=== PATIENT | male | born 1955 ===

== ENCOUNTER → 2021-01-10 13:58 | Outpatient (BNVA) | payer BC, MEDICARE, SELFPAY | PROVIDERS: PCP Family Medicine; Visit Provider Urology ==

== ENCOUNTER 2021-01-19 10:27 | Outpatient (REF) | payer MEDICARE, BC, SELFPAY ==
--- NOTE | ~2021-01-19 | US_ITS ---
EXAMINATION: US RETROPERITONEAL LIMITED (RENAL ONLY) CLINICAL INFORMATION: Calculus of kidney. COMPARISON: None TECHNIQUE: Real-time imaging of the kidneys. FINDINGS: RIGHT KIDNEY: 11.9 x 6.5 x 5.8 cm (SAG x AP x TRV). The kidney is normal in size, contour, and echogenicity. Renal cortical thickness is normal. No calculi or focal parenchymal lesions. No hydronephrosis. LEFT KIDNEY: 11.4 x 6.1 x 5.0 cm (SAG x AP x TRV). The kidney is normal in size, contour, and echogenicity. Renal cortical thickness is normal. No calculi or focal parenchymal lesions. No hydronephrosis. US/US renal BI IMPRESSION: Normal renal ultrasound.
== END 2021-01-19 10:28 | disposition home or self-care (01) ==
LOC: HO.HMGCX 10:27
PROVIDERS: PCP Family Medicine; Visit Provider Urology
DX: N20.0 Calculus of kidney (principal)
CPT/HCPCS: 76775

== ENCOUNTER 2021-12-27 08:54 | Outpatient (REF) | payer MEDICARE, BC, SELFPAY ==
--- NOTE | ~2021-12-27 | XR_ITS ---
EXAMINATION: XR ABDOMEN KUB CLINICAL INDICATION: N20.0 - Calculus of kidney COMPARISON: Renal ultrasound 01/19/2021. TECHNIQUE: AP x2 views of the abdomen. FINDINGS: No visible renal or abdominal ureteral calculi. Probable calcified phleboliths pelvis. Bowel gas normal. No gaseous dilatation of bowel or abnormal collections of gas. Lung bases clear. Multilevel degenerative disc changes lower thoracic and lumbar spine. XR/XR KUB IMPRESSION: -No visible renal or abdominal ureteral calculi. Probable calcified phlebolith pelvis. -Bowel gas unremarkable. Lung bases clear.
== END 2021-12-27 08:55 | disposition home or self-care (01) ==
LOC: HO.XRAY 08:54
PROVIDERS: PCP Family Medicine; Visit Provider Urology
DX: N20.0 Calculus of kidney (principal)
CPT/HCPCS: 74018

== ENCOUNTER → 2022-01-10 09:45 | Outpatient (BNVA) | payer MEDICARE, BC, SELFPAY | PROVIDERS: PCP Family Medicine; Visit Provider Urology | DX: N52.9 Male erectile dysfunction, unspecified (principal); N20.0 Calculus of kidney | CPT/HCPCS: Q3014 ==

== ENCOUNTER → 2023-01-06 10:25 | Outpatient (BNVA) | payer MEDICARE, BC, SELFPAY | PROVIDERS: Visit Provider Nurse Practitioner Family | DX: N20.0 Calculus of kidney (principal); E11.69 Type 2 diabetes mellitus with other specified complication; N52.1 Erectile dysfunction due to diseases classified elsewhere | CPT/HCPCS: 99212 ==

== ENCOUNTER 2023-03-04 05:01 | Outpatient (REF) | payer MEDICARE, BC, SELFPAY ==
--- NOTE | ~2023-03-04 | XR_ITS ---
EXAMINATION: XR KNEE, LEFT CLINICAL INFORMATION: Pain COMPARISON: None available. TECHNIQUE: 3 views of the left knee. FINDINGS: Bone alignment is normal. No fracture or dislocation. Arthritis at the patellofemoral joint with small osteophytes. Osteophytes at the quadriceps tendon insertion and patellar tendon origin and insertion. Small joint effusion. XR/XR knee LT 3V IMPRESSION: Degenerative changes.
== END 2023-03-04 05:02 | disposition home or self-care (01) ==
LOC: HO.HOSX 05:01
PROVIDERS: Visit Provider Orthopaedic Surgery
DX: S83.242A Other tear of medial meniscus, current injury, left knee, initial encounter (principal); M25.562 Pain in left knee; X58.XXXA Exposure to other specified factors, initial encounter; Y93.9 Activity, unspecified; Y92.9 Unspecified place or not applicable; Y99.9 Unspecified external cause status; Z79.899 Other long term (current) drug therapy
CPT/HCPCS: 20610; 73562; J3301

== ENCOUNTER 2023-03-04 09:16 | Outpatient (AMB) | payer MEDICARE, BC, SELFPAY ==
--- NOTE | 2023-03-04 09:29 | MHC.OFFVIS ---
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 Previous patient of Dr. Reyes. Patient reports ongoing pain for a year and getting worse. He describes his pain as sharp in nature. Most of the pain is along the medial and lateral aspects of his left knee. He states that his left knee will give out several times per day. He has tried wearing a knee brace which gives him minimal relief. He has also tried Tylenol anti-inflammatory medicines which gave him mild relief. He has had injections past which gave him temporary relief. Allergies penicillin V Allergy (Unknown, Verified 03/04/23 09:34) Unknown Medication List - Last Reconciled 03/04/23 by Az Reyes MD atorvastatin 10 mg PO DAILY empagliflozin (Jardiance) 25 mg PO DAILY fluoride (sodium) 1.1% PO ketoconazole 2% 1 appl topical DAILY montelukast 10 mg PO DAILY omeprazole 20 mg PO DAILY semaglutide (Ozempic) 0.5 mg subcut QWEEK [facility] Medical History (Updated 03/04/23 @ 12:22 by Az Reyes MD) Diabetes mellitus, type II Ejaculatory disorder Surgical History History of surgery Physical Exam Vital Signs: BMI result Body Mass Index 25.8 Const Other: Well-nourished well-developed very friendly male awake alert and oriented x3 in no acute distress Extrem Other: Bilateral lower extremity examination shows good capillary refill, no skin lesions noted, normal sensation light touch Left knee examination shows a minimal effusion, tenderness along his medial and lateral joint lines, positive [facility] Procedures Joint Injection/Drain Joint Injection/Drain Primary Site: left knee Prep: site was prepped using aseptic technique Injected: 40 mg of, Kenalog and 1% plain lidocaine Procedure: The patient tolerated the procedure well Coding 47300 - Large joint Procedure code (CPT) selection complete Results Reviewed Results Reviewed: 03/04/23 09:39 Lidocaine HCl 2 % MPF [Xylocaine 2 % MPF] 5 ml .ROUTE .ST-MED ONE Triamcinolone Acetonide [Kenalog-40] 40 mg .ROUTE .STK-MED ONE X-rays of the patient's bilateral knee show mild diffuse joint space narrowing, no acute bony abnormalities MRI of the patient's left knee shows mild diffuse degenerative changes as well as tearing of his medial and lateral menisci, no acute bony abnormalities Assessment & Plan Assessment & Plan (1) Tear of medial meniscus of left knee: Code(s): S83.242A - Other tear of medial meniscus, current injury, left knee, initial encounter Plan Mr. Walls presents with left knee pain and mechanical symptoms due to tearing of his medial and lateral menisci. I had a lengthy discussion with the patient regarding the treatment options. The risks and benefits of a no other cortisone injection were discussed at length with the patient. The patient wished to proceed. He tolerated the injection well. If he does not get lasting relief from the cortisone injection therapy he is considering undergoing left knee arthroscopic surgery later this year. He will contact my office to pick a surgery date when he is ready to do so. The surgery will most likely involve left knee diagnostic arthroscopy with partial medial and lateral meniscectomies. He will follow-up as instructed. Feel free to call me at any time should questions regarding his orthopedic management arise. Thank you very much for asking me to see this very friendly gentleman. I spent 22 minutes in reviewing the patient's records and imaging studies, seeing the patient and documenting in the medical record. Orders: Orders XR knee LT 3V Today M25.562 - Pain in left knee AMB Joint Injection/Aspiration Today S83.242A - Other tear of medial meniscus, current injury, left knee, initial encounter Coding Level of Care Code Est Pt Level 2 (72360) Diagnoses Tear of medial meniscus of left knee S83.242A CPT Codes Coding - Large joint: 91647 - Large joint ([id number])
[2023-03-04 09:37] VITALS: BMI 25.8
== END 2023-03-04 10:10 | disposition home or self-care (01) ==
PROVIDERS: PCP Family Medicine; Visit Provider Orthopaedic Surgery
DX: S83.232A Complex tear of medial meniscus, current injury, left knee, initial encounter (principal); S83.272A Complex tear of lateral meniscus, current injury, left knee, initial encounter; M17.12 Unilateral primary osteoarthritis, left knee
CPT/HCPCS: 20610; 99204

== ENCOUNTER 2023-04-24 09:26 | Outpatient (AMB) | payer MEDICARE, BC, SELFPAY ==
--- NOTE | 2023-04-24 09:27 | A.OFFVIS_ITS ---
Intake Intake Visit Reasons: PreOp - Lt Knee Arthroscopy 05/09 DR Ramos Note: Dain is a 68 year old male who presents today for a evaluation for his left knee pain. Previous patient of Dr. Reyes. Patient reports ongoing pain for a year and getting worse. He describes his pain as sharp in nature. Most of the pain is along the medial and lateral aspects of his left knee. He states that his left knee will give out several times per day. He has tried wearing a knee brace which gives him minimal relief. He has also tried Tylenol anti- inflammatory medicines which gave him mild relief. He has had injections past which gave him temporary relief. Allergies penicillin V Allergy (Unknown, Verified 04/24/23 09:34) Unknown Medication List - Last Reconciled 04/24/23 by Hailee Smith RN atorvastatin 10 mg PO DAILY empagliflozin (Jardiance) 25 mg PO DAILY fluoride (sodium) 1.1% PO ketoconazole 2% 1 appl topical DAILY montelukast 10 mg PO DAILY omeprazole 20 mg PO DAILY semaglutide (Ozempic) 0.5 mg subcut QWEEK [facility] Medical History (Updated 03/04/23 @ 12:22 by Az Reyes MD) Diabetes mellitus, type II Ejaculatory disorder Surgical History History of surgery Physical Exam Const Other: Well-nourished well-developed very friendly male awake alert and oriented x3 in no acute distress Lungs - clear to auscultation bilaterally with symmetric expansion Cardiovascular exam - regular rate and rhythm Abdominal exam - soft nontender nondistended Extrem Other: Bilateral lower extremity examination shows good capillary refill, no skin lesions noted, normal sensation light touch Left knee examination shows a minimal effusion, minimal crepitus with range of motion, tenderness along his medial and lateral joint lines, positive Odalys's test, no instability Results Reviewed Results Reviewed: X-rays of the patient's left knee show mild diffuse joint space narrowing, no acute bony abnormalities MRI of the patient's left knee shows mild diffuse degenerative changes as well as tearing of his medial and lateral menisci Assessment & Plan Assessment & Plan (1) Tear of medial meniscus of left knee: Code(s): S83.242A - Other tear of medial meniscus, current injury, left knee, initial encounter Plan: Mr. Walls presents with progressively worsening left knee pain and mechanical symptoms due to early degenerative joint disease as well as tearing of his medial and lateral menisci and plica syndrome. I had a lengthy discussion with the patient regarding the treatment options. At this point he has failed continued non operative treatments. The risks and benefits of left knee arthroscopic surgery were discussed at length with the patient. The patient wishes to proceed with surgery. Surgery will most likely involve left knee diagnostic arthroscopy with partial medial and lateral meniscectomies. He does understand that he may not get 100% relief of his symptoms depending on the severity of his degenerative changes. I did give the patient a prescription for Percocet for his postoperative pain. The patient will follow-up as instructed. Feel free to call me at any time should questions regarding his orthopedic management arise. I spent 22 minutes in reviewing the patient's records and imaging studies, seeing the patient and documenting in the medical record. Medications: New oxycodone-acetaminophen 5-325 mg (Percocet) Partial Fill upon patient request. 1 tab PO Q6H PRN 20 tabs 0RF pain Coding Level of Care Code Est Pt Level 2 (26436) Diagnoses Tear of medial meniscus of left knee S83.242A
== END 2023-04-24 09:56 | disposition home or self-care (01) ==
PROVIDERS: PCP Family Medicine; Visit Provider Orthopaedic Surgery
DX: S83.242A Other tear of medial meniscus, current injury, left knee, initial encounter (principal)
CPT/HCPCS: 99212

== ENCOUNTER → 2023-04-24 09:26 | Outpatient (BNVA) | payer MEDICARE, BC, SELFPAY | PROVIDERS: PCP Family Medicine; Visit Provider Orthopaedic Surgery | DX: S83.242A Other tear of medial meniscus, current injury, left knee, initial encounter (principal); M67.52 Plica syndrome, left knee; M17.12 Unilateral primary osteoarthritis, left knee | CPT/HCPCS: 99212 ==

== ENCOUNTER 2023-05-09 07:48 | Day surgery (SDC) | payer MEDICARE, BC, SELFPAY ==
[2023-05-06 09:53] VITALS: BMI 25.8
--- NOTE | 2023-05-08 09:54 | HO.ANESPROP2 ---
Documented by User: Erinn Marroquin NP 05/08/23 09:58 HPI - Anesthesia Eval Consult details Narrative: 68yo M for Left Knee Arthroscopy partial medial meniscectomy,poss lateral meniscectomy Anesthesia Pre-Procedure Meds Is the patient on any of the following meds?: Semaglutide (Ozempic) (Last dose 04/25/23) PMFSH Active Problems Active Problems: All Active Problems (Updated 05/06/23 @ 09:47 by Mala Morillo RN) Tear of medial meniscus of left knee (Acute) Left knee pain (Acute) Erectile dysfunction associated with type 2 diabetes mellitus (Acute) Nephrolithiasis (Acute) Past Medical History Medical History (Updated 05/06/23 @ 09:47 by Mala Morillo RN) Elevated cholesterol Nephrolithiasis GERD (gastroesophageal reflux disease) Diabetes mellitus, type II Ejaculatory disorder Surgical History Surgical History History of surgery Social History Social History Patient Tobacco Use Status: Never used Tobacco Second Hand Smoke Exposure: No Use of substances other than those prescribed or required for medical reasons: No Are you DNR?: No Advance Directives: No Advance Directives Information Provided: Yes Advance Directives on File: No Meds Allergies Allergy/AdvReac Type Severity Reaction Status Date / Time penicillin V Allergy Unknown Unknown Verified 04/24/23 09:34 Active Medications: Current Medications Clindamycin Phosphate (Cleocin) 900 mg in 50 mls @ 50 mls/hr IV PREOP ONE Stop: 05/09/23 01:00 Home Medications Medication Instructions Recorded Confirmed Last Taken Type empagliflozin 25 mg tablet 25 mg PO DAILY 01/10/22 05/06/23 Unknown History (Jardiance) fluoride (sodium) 1.1 % dental 1 appl dental DAILY 01/10/22 05/06/23 Unknown History paste omeprazole 20 mg capsule,delayed 20 mg PO DAILY 01/10/22 05/06/23 Unknown History release semaglutide 0.25 mg or 0.5 mg (2 0.5 mg subcut QWEEK 01/06/23 05/06/23 Unknown History mg/3 mL) subcutaneous pen injector (Ozempic) atorvastatin 10 mg tablet 10 mg PO DAILY 03/04/23 05/06/23 Unknown History ketoconazole 2 % topical cream 1 appl topical DAILY 03/04/23 05/06/23 Unknown History montelukast 10 mg tablet 10 mg PO DAILY 03/04/23 05/06/23 Unknown History Exam Exam Date and Time: May 08, 2023 0954 Height,Weight and Vital Signs: Height 6 ft Weight 86.183 kg Assessment and Plan Assessment Anesthesia Assessment: Chart Reviewed Documented by User: Killian Cruz MD 05/09/23 08:53 HPI - Anesthesia Eval Anesthesia Pre-Procedure Meds If Yes to any meds - educate patient: Pt education - increased risk of aspiration PMFSH Past Medical History Medical History (Updated 05/06/23 @ 09:47 by Mala Morillo RN) Elevated cholesterol Nephrolithiasis GERD (gastroesophageal reflux disease) Diabetes mellitus, type II Ejaculatory disorder Family History Family history of problems with anesthesia: No Surgical History Surgical History History of surgery History of Problems with Anesthesia: No Social History Social History Patient Tobacco Use Status: Never used Tobacco Second Hand Smoke Exposure: No Use of substances other than those prescribed or required for medical reasons: No Are you DNR?: No Advance Directives: No Advance Directives Information Provided: Yes Advance Directives on File: No Meds Allergies Allergy/AdvReac Type Severity Reaction Status Date / Time penicillin V Allergy Unknown Unknown Verified 04/24/23 09:34 Home Medications Medication Instructions Recorded Confirmed Last Taken Type empagliflozin 25 mg tablet 25 mg PO DAILY 01/10/22 05/06/23 Unknown History (Jardiance) fluoride (sodium) 1.1 % dental 1 appl dental DAILY 01/10/22 05/06/23 Unknown History paste omeprazole 20 mg capsule,delayed 20 mg PO DAILY 01/10/22 05/06/23 Unknown History release semaglutide 0.25 mg or 0.5 mg (2 0.5 mg subcut QWEEK 01/06/23 05/06/23 Unknown History mg/3 mL) subcutaneous pen injector (Ozempic) atorvastatin 10 mg tablet 10 mg PO DAILY 03/04/23 05/06/23 Unknown History ketoconazole 2 % topical cream 1 appl topical DAILY 03/04/23 05/06/23 Unknown History montelukast 10 mg tablet 10 mg PO DAILY 03/04/23 05/06/23 Unknown History Exam Airway Mallampati Class: I TM Dist: >3cm Neck ROM: Full Heart: rrr Lungs: cta Assessment and Plan Assessment Anesthesia Assessment: Anesthesia Plan Discussed Final Anesthetic Review Family History of Problems with Anesthesia: No History of Problems with Anesthesia: No NPO: Yes ASA Class: II Final Preanesthetic Review: No Changes in Pt Med Stat, Meds/Allgs Chart Reviewed, Consent Obtained/Reviewed and Anes Risks/Benef Reviewed Patient Risk: Intermediate Procedure Risk: Intermediate Anesthetic Plan Anesthetic Plan: GA (Ozempic stopped 2 weeks ago) and Agree w/ Assess. and Plan Disposition: Standard PACU
[2023-05-09 08:07] VITALS: BP 181/92; PULSE 84; RESP 16; TEMP 36.7; O2SAT 100
[2023-05-09] MEDS: Lactated Ringers 1,000 ML 100 ML IVCONT (08:19)
[2023-05-09 08:23] LABS: Glucose, Whole Blood 122 mg/dL (60-115)
--- NOTE | 2023-05-09 08:36 | PC.NURSE ---
patient noted to have small 1 inch scab below left knee procedure site. Dr. Bangura notified via [employer] with picture included, okay to proceed with planned procedure.
[2023-05-09 11:32] VITALS: BP 174/90; PULSE 71; RESP 16; TEMP 36.1; O2SAT 100
[2023-05-09 11:35] VITALS: BP 141/93; PULSE 75; RESP 16; O2SAT 97
--- NOTE | 2023-05-09 11:35 | P.BOP_ITS ---
Brief Operative Note Date of Service: 05/09/23 Pre-op diagnosis: Left knee medial meniscus tear, left knee lateral meniscus tear, left knee degenerative joint disease, left knee plica syndrome Post-op diagnosis: same Procedure: Left knee diagnostic arthroscopy with left knee arthroscopic partial medial and lateral meniscectomies, left knee arthroscopic chondroplasty of the undersurface of the patella as well as the medial femoral condyle, left knee arthroscopic plica excision Implants: none Surgeon: Az Reyes MD Anesthesia: GLMA Was an Acquisition Marketing Manager used for this Procedure?: No Estimated blood loss (mL): 10 Pathology: none sent Condition: stable Disposition: PACU
--- NOTE | 2023-05-09 11:36 | W.PM.OPN ---
Operative Note Operative Note Date of Service: 05/09/23 Narrative: After the patient was identified as Dain Walls Jr. and their left knee was initialed by myself they were brought to the operating room where general anesthesia was induced by the anesthesiologist in routine fashion. Because of the patient's allergy to penicillins he was given 900 mg of IV clindamycin preoperatively for infection prophylaxis. The patient's left lower extremity was prepped and draped in sterile fashion. A formal time-out was completed. Marcaine was injected into the planned incision sites as well as the patient's left knee joint. A #11 scalpel blade was used to make an anterolateral portal 1 cm proximal to the joint line and 1 cm lateral to the patellar tendon. Blunt trocar technique was used to enter the suprapatellar pouch with the knee in extension. Diagnostic arthroscopy showed multiple bands of thickened plica which would be excised at the end of the procedure. There were no loose bodies or abnormalities found in either the medial or lateral gutters. The articular surface of the patella showed diffuse grades 2 and 3 degenerative changes. The trochlear groove articular surface showed diffuse grade 2 degenerative changes. The patient's knee was flexed to 45 degrees and a valgus force was placed upon it. The medial compartment was entered. An anteromedial portal was made 1 cm proximal to the joint line and 1 cm medial to the patellar tendon. Probing of the medial meniscus showed a radial tear of anterior horn. A partial medial meniscectomy was performed using the arthroscopic shaver. Following the partial meniscectomy the remainder of the meniscus tissue was stable. There were diffuse grades 2 and 3 degenerative changes of the medial femoral condyle as well as grade 1 degenerative changes of the medial tibial plateau. The articular surface of the medial femoral condyle was then made smooth using the arthroscopic shaver. The articular surface of the medial tibial plateau was already smooth so no chondroplasty was indicated. The patient's knee was placed into a neutral position. There was no injury to the anterior cruciate ligament. The patient's knee was then placed in the figure of 4 position and the lateral compartment was entered. There was a radial tear of the anterior horn of the lateral meniscus. A partial lateral meniscectomy was performed using the arthroscopic shaver. Following the partial meniscectomy the remainder of the meniscus tissue was stable. There were minimal degenerative changes of the lateral femoral condyle and lateral tibial plateau. The patient's knee was once again brought into extension and the suprapatellar pouch was entered. The arthroscopic shaver and the [employer]throCare Wand were used to excise the thickened bands of plica. The undersurface of the patella was then made smooth using the arthroscopic shaver. The articular surface of the trochlear groove was already smooth so no chondroplasty was indicated. The knee joint was irrigated and then drained. All arthroscopic instruments were removed. The 2 portals were closed with 3-0 nylon interrupted suture. The knee joint was injected with Marcaine. Dry sterile dressing and Guillaume bandages were placed over the patient's knee. The patient was awoken and extubated in the operating room. The patient was transferred to the recovery room in stable condition.
[2023-05-09 11:40] VITALS: BP 148/96; PULSE 73; RESP 16; O2SAT 97
[2023-05-09 11:45] VITALS: BP 169/89; PULSE 71; RESP 16; O2SAT 98
[2023-05-09 12:00] VITALS: BP 162/84; PULSE 72; RESP 16; TEMP 36.5; O2SAT 99
== END 2023-05-09 12:32 | disposition home or self-care (01) ==
PROVIDERS: PCP Family Medicine; Visit Provider Orthopaedic Surgery
PROC: (CPT 29870; principal; 2023-05-09 09:40)
DX: S83.242A Other tear of medial meniscus, current injury, left knee, initial encounter (principal); S83.282A Other tear of lateral meniscus, current injury, left knee, initial encounter; M17.12 Unilateral primary osteoarthritis, left knee; M67.52 Plica syndrome, left knee; M25.462 Effusion, left knee; M23.8X2 Other internal derangements of left knee; X58.XXXA Exposure to other specified factors, initial encounter; Y93.9 Activity, unspecified; Y92.9 Unspecified place or not applicable; Y99.8 Other external cause status; E11.9 Type 2 diabetes mellitus without complications; E78.00 Pure hypercholesterolemia, unspecified; Z79.899 Other long term (current) drug therapy; Z79.85 Long-term (current) use of injectable non-insulin antidiabetic drugs; Z88.0 Allergy status to penicillin
CPT/HCPCS: 29880; 29876; 82947; J0131; J0171; J1885; J2795

== ENCOUNTER → 2023-05-09 07:48 | Outpatient (BNV) | payer MEDICARE, BC, SELFPAY | PROVIDERS: PCP Family Medicine; Visit Provider Orthopaedic Surgery | DX: S83.232A Complex tear of medial meniscus, current injury, left knee, initial encounter (principal); S83.272A Complex tear of lateral meniscus, current injury, left knee, initial encounter | CPT/HCPCS: 29880 ==

== ENCOUNTER 2023-05-22 09:21 | Outpatient (AMB) | payer MEDICARE, BC, SELFPAY ==
--- NOTE | 2023-05-22 09:25 | A.OFFVIS_ITS ---
Intake Intake Visit Reasons: PO-Lt Knee Arthroscopy 05/09 Intake Note: Dain briceno 68 year old male presents today for a post operative left knee arthroscopy, DOS 05/09/23 Patient reports he is doing really well, he denies any pain/discomfort. Allergies penicillin V Allergy (Unknown, Verified 05/22/23 09:27) Unknown HPI PO-Lt Knee Arthroscopy 05/09 HPI Details 68-year-old male who [facility] for post-op left knee , 05/09/[address] Reyes. He states he has no pain or discomfort in his left knee and is doing well overall. He has no concerns today. [facility] Medical History (Updated 05/06/23 @ 09:47 by Mala Morillo RN) Elevated cholesterol Nephrolithiasis GERD (gastroesophageal reflux disease) Diabetes mellitus, type II Ejaculatory disorder Surgical History History of surgery Social History Patient Tobacco Use Status: Never used Tobacco Second Hand Smoke Exposure: No Review of Systems Const All systems reviewed & are unremarkable except as noted in HPI and below Physical Exam Extrem Other: Left knee: Incision clean, dry and intact. No erythema or joint effusion. ROM is 0-110 degrees. Calf supple, nontender. NVI. Results Reviewed Results Reviewed: Date of Service: 05/09/23 Pre-op diagnosis: Left knee medial meniscus tear, left knee lateral meniscus tear, left knee degenerative joint disease, left knee plica syndrome Post-op diagnosis: same Procedure: Left knee diagnostic arthroscopy with left knee arthroscopic partial medial and lateral meniscectomies, left knee arthroscopic chondroplasty of the undersurface of the patella as well as the medial femoral condyle left knee arthroscopic plica excision Surgeon: Az Reyes MD Assessment & Plan Assessment & Plan (1) H/O arthroscopy of left knee: Code(s): Z98.890 - Other specified postprocedural states Plan Sutures removed today, steri strips applied. He will begin to increase activity as tolerated. We discussed returning to the gym and activities. I encouraged him to work on low impact activities for next 4-6 weeks and then he can increase activity as tolerated. He should avoid any deep bending, twisting or pivoting type motions for the next 6 weeks. I would like to see him back in [address] Reyes, sooner if needed. Patient Instructions: Scribed for Chayo Welch PA-C, by Mohit Gutierrez senior medical transcriptionist, on 05/22/2023 at 9:30 AM EST. I, Chayo Welch PA-C, have personally reviewed and agree with the information entered by the scribe. Coding Level of Care Code Global (16003) Diagnoses H/O arthroscopy of left knee Z98.890
== END 2023-05-22 09:49 | disposition home or self-care (01) ==
PROVIDERS: PCP Family Medicine; Visit Provider Physician Assistant
DX: Z98.890 Other specified postprocedural states (principal)
CPT/HCPCS: 99024

== ENCOUNTER → 2023-05-22 09:21 | Outpatient (BNVA) | payer MEDICARE, BC, SELFPAY | PROVIDERS: PCP Family Medicine; Visit Provider Physician Assistant ==

== ENCOUNTER 2023-06-19 09:04 | Outpatient (AMB) | payer MEDICARE, BC, SELFPAY ==
--- NOTE | 2023-06-19 09:10 | A.OFFVIS_ITS ---
Intake Intake Visit Reasons: PO-Lt Knee Arthroscopy 05/09 DR- Intake Note: Dain a 68 year old male presents today for a post operative left knee arthroscopy, DOS 05/09/23 Patient reports he is doing well, states with over use he will have a mild pain. He has returned to light exercise at the gym. He denies any fevers or chills. Allergies penicillin V Allergy (Unknown, Verified 06/19/23 09:17) Unknown Medication List - Last Reconciled 06/19/23 by Az Reyes MD atorvastatin 10 mg PO DAILY empagliflozin (Jardiance) 25 mg PO DAILY fluoride (sodium) 1.1% 1 appl dental DAILY ketoconazole 2% 1 appl topical DAILY montelukast 10 mg PO DAILY omeprazole 20 mg PO DAILY semaglutide (Ozempic) 0.5 mg subcut QWEEK [facility] Medical History (Updated 05/06/23 @ 09:47 by Mala Morillo RN) Elevated cholesterol Nephrolithiasis GERD (gastroesophageal reflux disease) Diabetes mellitus, type II Ejaculatory disorder Surgical History History of surgery Social History Patient Tobacco Use Status: Never used Tobacco Second Hand Smoke Exposure: No Physical Exam Extrem Other: Left knee examination shows that the surgical incisions are well healed, no erythema, full range of motion when compared to his right knee, minimal discomfort with range of motion Assessment & Plan Assessment & Plan (1) H/O arthroscopy of left knee: Code(s): Z98.890 - Other specified postprocedural states Plan Mr. Walls continues to do well after undergoing left knee arthroscopic surgery. He will gradually progress to activities as tolerated. He will follow up with me on an as-needed basis should his symptoms not plateau at an unacceptable level over the next few months. Feel free to call me at any time should questions regarding his orthopedic management arise. Coding Level of Care Code Global (79138) Diagnoses H/O arthroscopy of left knee Z98.890
== END 2023-06-19 09:28 | disposition home or self-care (01) ==
PROVIDERS: PCP Family Medicine; Visit Provider Orthopaedic Surgery
DX: Z98.890 Other specified postprocedural states (principal)
CPT/HCPCS: 99024

== ENCOUNTER → 2023-06-19 09:04 | Outpatient (BNVA) | payer MEDICARE, BC, SELFPAY | PROVIDERS: PCP Family Medicine; Visit Provider Orthopaedic Surgery | DX: Z98.890 Other specified postprocedural states (principal) | CPT/HCPCS: 99212 ==

== ENCOUNTER 2024-01-01 09:56 | Outpatient (REF) | payer MEDICARE, BC, SELFPAY ==
--- NOTE | ~2024-01-01 | XR_ITS ---
EXAMINATION: XR ABDOMEN KUB CLINICAL INDICATION: Calculus of kidney COMPARISON: KUB from 12/27/2021. Renal ultrasound from 01/19/2021. TECHNIQUE: AP view of the abdomen. FINDINGS: Normal bowel gas pattern. No radiographic evidence of renal stones. There appear to be vas deferens calcifications in the lower pelvis. Mild dextroscoliosis of the degenerated lumbar spine. Multilevel osteophyte formation of the visualized thoracolumbar spine. No suspicious osseous lesions. XR/XR KUB IMPRESSION: No evidence of renal calculi.
== END 2024-01-01 09:57 | disposition home or self-care (01) ==
LOC: HO.XRAY 09:56
PROVIDERS: PCP Family Medicine; Visit Provider Nurse Practitioner Family
DX: N20.0 Calculus of kidney (principal)
CPT/HCPCS: 74018

== ENCOUNTER 2024-01-07 09:34 | Outpatient (AMB) | payer MEDICARE, BC, SELFPAY ==
--- NOTE | 2024-01-07 09:27 | A.OFFVIS_ITS ---
Intake Visit Reasons: 1y/KUB Intake Note: Patient presents for follow up on : nephrolithiasis, KUB X-ray results, and erectile dysfunction Imagin01/01/24 Urology Medications: sildenafil Blood Thinner: none Jailer/Training Officer Required: No Accompanied by: Self / Same As Patient Allergies penicillin V Allergy (Unknown, Verified 01/07/24 10:01) Unknown Medication List - Last Reconciled 01/07/24 by GRACIE Pearson-FLORES atorvastatin 10 mg PO DAILY empagliflozin (Jardiance) 25 mg PO DAILY fluoride (sodium) 1.1% 1 appl dental DAILY ketoconazole 2% 1 appl topical DAILY montelukast 10 mg PO DAILY omeprazole 20 mg PO DAILY semaglutide (Ozempic) 0.5 mg subcut QWEEK sildenafil (pulm.hypertension) 20 mg PO .prn PRN 90 days HPI Comments Details: Dain is a very pleasant male patient of Dr Clancy. He has a past medical history of diabetes, nephrolithiasis, ED, hypercholesteremia, and GERD. He presents to the office today for follow-up of his erectile dysfunction and nephrolithiasis. In discussion with the patient today he reports to be doing and feeling well. He currently denies any bothersome urinary issues or concerns. Recent KUB results reviewed with the patient today. No evidence of renal calculi. He reports having called the office earlier this week for refill on his Viagra however was unable to get through and is requesting refill. He otherwise offers no issues or concerns at this time. He denies urinary urgency, urinary frequency, incontinence, nocturia, hematuria, dysuria, foul smelling u rine, changes to urinary stream, flank pain, fever, and or chills. When asked he is happy with his current voiding parameters. In office urinalysis results reviewed with the patient today. Discussed and stressed importance of managing diabetes for improvement in ED as well as overall health and well-being. Discussed importance of continuing to drink adequate amount of water daily. He reports to be following up with his PCP for his annual PSAs/DREs. Erectile dysfunction: Medications effective. Discussed issues with ejaculation. Appeared to be related to Celebrex. He will see what happens off Celebrex. Retrograde ejaculation discussed the side effects from alpha radha. He presents today for for continued evaluation and management of erectile dysfunction. Current treatment includes Viagra/sildenafil - effective At this time he experiences erections SOY 1-7 Severe ED. Nephrolithiasis/Urolithiasis: They are here for further evaluation of urethrolitiasis. They present for evaluation of back pain none flank pain none abdominal pain none Urolithiasis was diagnosed 2012. The patient previously had kidney stones whose composition w calcium oxalate - monohydrate. Laboratory investigations include no recent labs. 24 Hour urine evaluation improved supersaturations with fluid intake. Prior treatment(s) include observation, with dietary advice to increase fluids, decrease salt and watch protein intake. Prior imaging includes 07/28 no recent imaging punctuate calculi in left lower kidney, 01/26 a KUB x-ray, showing no evidence of stones 01/27 , a KUB x-ray, , showing no evidence of stones. 01/02, a KUB x-ray, showing no evidence of stones. 01/04 a KUB x-ray, showing no evidence of stones. [facility] Medical History Elevated cholesterol Nephrolithiasis GERD (gastroesophageal reflux disease) Diabetes mellitus, type II Ejaculatory disorder Surgical History History of surgery Social History Patient Tobacco Use Status: Never used Tobacco Second Hand Smoke Exposure: No Review of Systems Const All systems reviewed & are unremarkable except as noted in HPI and below Reports as per HPI Eyes Reports no additional complaints ENT Reports no additional complaints Card Reports as per HPI Resp Reports no additional complaints GI Reports as per HPI Reports as per HPI Musc Reports no additional complaints Neuro Reports no additional complaints Psych Reports no additional complaints Endo Reports as per HPI Lg/Lymph Reports no additional complaints Aller/Immun Reports no additional complaints Physical Exam Const General: cooperative, healthy appearing, comfortable, no acute distress, well developed, alert and awake Orientation/consciousness: patient oriented x3 Limitations: no limitations HEENT Head: Yes normal to inspection, Yes normocephalic and Yes atraumatic Ears: hearing grossly normal bilaterally Eyes General: appearance normal, both eyes and all related structures Neck Neck: Yes normal visual inspection and Yes trachea midline Chest Chest palpation & inspection: normal inspection of the chest Resp Effort & Inspection: normal respiratory effort and able to speak in complete sentences Cardio Rate: regular rate GI Inspection: Yes normal to inspection General: Yes no CVA tenderness Back/Spine/Pelvis Back: no CVA tenderness Skin General skin exam: no rashes or lesions noted Neuro General: patient oriented x3 Extrem General: Yes normal to inspection Psych Appearance: grossly normal and well kempt Mental Status: mental status grossly normal Speech and movement: Normal speech and movement present and Clear speech present Affect: normal affect Attitude: cooperative Thought process: Normal thought process present Thought content: Normal thought content present Insight: Fair insight present (Psych) Judgement: Fair judgement present (Psych) Results AMB Urinalysis, Automated UA Leukoctes 0 Sherrie/uL Last Edit by [employer] on 01/07/24 09:47 UA Nitrite Negative Last Edit by [email or web address] on 01/07/24 09:47 UA Urobilinogen 0.2 mg/dL Last Edit by [employer] on 01/07/24 09:47 UA Protein 0 mg/dL Last Edit by [employer] on 01/07/24 09:47 UA pH 6.0 Last Edit by [employer] on 01/07/24 09:47 UA Blood 0 Jose L/uL Last Edit by [employer] on 01/07/24 09:47 UA Specific [place] 1.005 Last Edit by [email or web address] on 01/07/24 09:47 UA Ketone Negative Last Edit by [employer] on 01/07/24 09:47 UA Bilirubin 0 mg/dL Last Edit by [employer] on 01/07/24 09:47 UA Glucose 0 mg/dL Last Edit by [employer] on 01/07/24 09:47 Results Reviewed Results Reviewed: Laboratory Last Values Urine pH (Auto) 6.0 01/07/24 09:45 Specific [place] (Auto) 1.005 01/07/24 09:45 Urine Protein (Auto) 0 mg/dL 01/07/24 09:45 Glucose (UA)(Auto) 0 mg/dL 01/07/24 09:45 Urine Ketones (Auto) Negative 01/07/24 09:45 Urine Blood (Auto) 0 Jose L/uL 01/07/24 09:45 Urine Nitrite (Auto) Negative 01/07/24 09:45 Urine Bilirubin (Auto) 0 mg/dL 01/07/24 09:45 Urine Urobilinogen (Auto) 0.2 mg/dL 01/07/24 09:45 Leukocyte Esterase (Auto) 0 Sherrie/uL 01/07/24 09:45 Date of Service: 01/01/24 EXAMINATION: XR ABDOMEN KUB FINDINGS: Normal bowel gas pattern. No radiographic evidence of renal stones. There appear to be vas deferens calcifications in the lower pelvis. Mild dextroscoliosis of the degenerated lumbar spine. Multilevel osteophyte formation of the visualized thoracolumbar spine. No suspicious osseous lesions. IMPRESSION: No evidence of renal calculi. Assessment & Plan Assessment & Plan (1) Nephrolithiasis: Code(s): N20.0 - Calculus of kidney Category: Medical (2) Erectile dysfunction associated with type 2 diabetes mellitus: Code(s): E11.69 - Type 2 diabetes mellitus with other specified complication; N52.1 - Erectile dysfunction due to diseases classified elsewhere Category: Medical Plan In office urinalysis results reviewed with the patient today; as noted above. Patient denies any urological issues or concerns at this time. Discussed and stressed the importance of managing diabetes for improvement in erectile dysfunction as well as overall health and well-being. Discussed, stress, and educated on the importance of drinking plenty of water daily. Discussed adding 1 oz of lemon juice to water daily. When asked patient reports he is happy with current voiding parameters Continue p.r.n. Sidenafil as needed for sexual activity; refill provided Obtain KUB in 1 year Follow-up in 1 year with imaging to be completed prior; or sooner with any issues, concerns, and or questions. Orders: Orders XR KUB 1 Year N20.0 - Calculus of kidney AMB Urinalysis Automated 01/07/24 Z13.9 - Encounter for screening, unspecified Medications: Changed From sildenafil (pulm.hypertension) Take 1-5 tabs as needed daily, as directed. [id number] [facility] [id number] Member [id number] 20 mg PO .prn 90 days PRN 30 tabs 5RF sexual activity To sildenafil (pulm.hypertension) [id number] [facility] [id number] Member [id number] 20 mg PO .prn PRN 30 tabs 4RF sexual activity 90 days Patient Instructions: The patient had an opportunity to ask questions regarding the treatment plan. All questions were answered. Physical exam, labs, and imaging were discussed and reviewed in detail. As well as risks, benefits, and discussion of treatment choices. No major barriers to understanding were identified. The patient expressed understanding and agreement with the above treatment plan. The patient was made aware they should contact our office by phone for worsening of their current condition, the appearance of new symptoms, or with any q uestions or concerns. Compliance is encouraged with any medications and follow up testing that is ordered. It is a privilege to be allowed the opportunity to participate in? your urological care.? Again, if you have any questions or concerns If you have any questions or concerns please do not hesitate to contact me. The office is [phone]. This note is constructed using voice recognition software. While every effort has been made to ensure accuracy street railway line installer errors may have been included. Yours sincerely, DENISE Pearson Coding Level of Care Code Est Pt Level 3 (06149) Diagnoses Nephrolithiasis N20.0 Erectile dysfunction associated with type 2 diabetes mellitus E11.69; N52.1
== END 2024-01-07 10:05 | disposition home or self-care (01) ==
PROVIDERS: PCP Family Medicine; Visit Provider Nurse Practitioner Family
DX: N20.0 Calculus of kidney (principal); E11.69 Type 2 diabetes mellitus with other specified complication; N52.1 Erectile dysfunction due to diseases classified elsewhere
CPT/HCPCS: 99213

== ENCOUNTER → 2024-01-07 09:34 | Outpatient (BNVA) | payer MEDICARE, BC, SELFPAY | PROVIDERS: PCP Family Medicine; Visit Provider Nurse Practitioner Family | DX: N20.0 Calculus of kidney (principal); E11.69 Type 2 diabetes mellitus with other specified complication; N52.1 Erectile dysfunction due to diseases classified elsewhere | CPT/HCPCS: 81003; 99212 ==

== ENCOUNTER 2024-12-02 09:05 | Outpatient (REF) | payer MEDICARE, BC, SELFPAY ==
--- NOTE | ~2024-12-02 | XR_ITS ---
CLINICAL HISTORY: N20.0 - Calculus of kidney 1 view abdomen Comparison: 12/27/2021 Findings: No pneumoperitoneum or pneumatosis. No new abnormal calcifications. No acute fractures. IMPRESSION: The bowel gas pattern is normal This document has been electronically signed by: Santhosh Shea MD on 12/03/2024 08:58:09
--- OUTSIDE RECORDS SUMMARY | 2024-12-02 09:22 | XMS_ITS | Continuity of Care Document ---
Author Name [facility] Organization 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 Unavailable Unavailable Problems Combined list of problems from Department of [facility] and Veterans Affairs facilities. It does not include entries that were removed or entered in error. Problem Status Onset Date Problem Type Date of Resolution Comments Source Benign essential hypertension Active Condition [place] Erectile dysfunction Active Condition [place] Gastro[facility]ophageal reflux disease [facility] 2021 Entered By: SYMONE QUINONES Comment: PCP: Dr. Natalio Clancy P: [phone] 31Mar 2021 Entered By: SYMONE QUINONES Comment: Urologist: Dr. Collins Frankel P: [phone] 00Oct 01, 2021 Entered By: SYMONE QUINONES Comment: Pulmonologis t: Dr. Carvajal P: [phone] [place] Sleep apnea Active Condition [facility] Type 2 diabetes mellitus Active Condition [place] Diagnosis: ICD-10-CM E11.9 Type 2 diabetes mellitus without complications Active Diagnosis [place] [facility] [place] [facility] Diagnosis: ICD-10-CM J34.89 Other specified disorders of nose and nasal sinuses Active Diagnosis [facility] IE Medications Combined list of outpatient medications from Department of [facility] and [facility] Affairs facilities.Medications provided include 1) outpatient medications from the last 15 months, and 2) patient-reported medications. Medication Details Route Status Patient Instructions Prescription Expires Prescription Number Last Dispense Date Ordering Provider Order Date Order Qty Source ATORVASTATI N CA 40MG TAB TAKE ONE-HALF TABLET BY MOUTH ONCE DAILY ORAL ACTIVE Ahsan EVANS A 2024 [place] EMPAGLIFLOZ IN 25MG TAB TAKE ONE TABLET BY MOUTH ONCE DAILY FOR TYPE 2 DIABETES MELLITUS ORAL ACTIVE 08/06/2025 [id number] Satish JOHNSON A 2024 90 [place] EMPAGLIFLOZ IN 25MG TAB TAKE ONE TABLET BY MOUTH ONCE DAILY FOR TYPE 2 DIABETES MELLITUS ORAL DISCONT INUED 03/25/2025 [id number] Satish JOHNSON 2023 90 [place] EMPAGLIFLOZ IN 25MG TAB TAKE ONE TABLET BY MOUTH ONCE DAILY FOR TYPE 2 DIABETES MELLITUS ORAL DISCONT INUED 11/17/2024 [id number] Satish JOHNSON 2023 90 [place] KETOCONAZOL E 2% CREAM,TOP APPLY A THIN LAYER TOPICALL Y PRN TOPICA L ACTIVE MEGAN QUINONES SA SELWYN 2021 [facility] LISINOPRIL 2.5MG TAB TAKE ONE TABLET BY MOUTH ONCE DAILY ORAL ACTIVE MEGAN QUINONES SA SELWYN 2021 [facility] [place] METFORMIN HCL 500MG 24HR TAB,SA TAKE ONE TABLET BY MOUTH ONCE DAILY FOR TYPE 2 DIABETES MELLITUS ORAL ACTIVE 08/06/2025 [id number] Satish JOHNSON 2024 90 [place] METFORMIN HCL 500MG 24HR TAB,SA TAKE TWO TABLETS BY MOUTH ONCE DAILY ORAL DISCONT INUED BY PROVIDE R 11/24/2024 [id number] Satish JOHNSON 2023 180 [place] METFORMIN HCL 500MG 24HR TAB,SA TAKE TWO TABLETS BY MOUTH ONCE DAILY ORAL DISCONT INUED 05/21/2024 [id number] Satish JOHNSON 2022 180 [place] MONTELUKAST NA 10MG TAB TAKE ONE TABLET BY MOUTH ONCE DAILY ORAL ACTIVE MEGAN QUINONES SA SELWYN 2023 [place] OMEPRAZOLE 20MG CAP,EC TAKE 1 CAPSULE BY MOUTH ONCE DAILY ORAL ACTIVE MEGAN QUINONES SA SELWYN 2021 [facility] [place] SEMAGLUTIDE 0.25MG/0.37 5ML INJ,SOLN,PE N,3ML INJECT 0.5MG SUBCUTAN EOUSLY ONCE A WEEK SUBCUT ANEOUS DISCONT INUED BY PROVIDE R 11/24/2024 [id number] Satish JOHNSON 2023 2 [place] SEMAGLUTIDE 0.25MG/0.37 5ML INJ,SOLN,PE N,3ML INJECT 0.5MG SUBCUTAN EOUSLY ONCE A WEEK SUBCUT ANEOUS DISCONT INUED 01/24/2024 [id number] Satish JOHNSON 2022 2 [place] SEMAGLUTIDE 1MG/0.75ML INJ,SOLN,PE N,3ML INJECT 1MG SUBCUTAN EOUSLY ONCE A WEEK FOR TYPE 2 DIABETES MELLITUS SUBCUT ANEOUS ACTIVE 08/06/2025 [id number] Satish JOHNSON 2024 3 [place] SEMAGLUTIDE 1MG/0.75ML INJ,SOLN,PE N,3ML INJECT 1MG SUBCUTAN EOUSLY ONCE A WEEK FOR TYPE 2 DIABETES MELLITUS SUBCUT ANEOUS DISCONT INUED 10/18/2024 [id number] Satish JOHNSON 2024 3 [place] SEMAGLUTIDE 1MG/0.75ML INJ,SOLN,PE N,3ML INJECT 1MG SUBCUTAN EOUSLY ONCE A WEEK FOR TYPE 2 DIABETES MELLITUS SUBCUT ANEOUS DISCONT INUED 03/25/2025 [id number] Satish JOHNSON 2023 1 [place] SILDENAFIL TAB TAKE 20 MG BY MOUTH PRN ORAL ACTIVE MEGAN QUINONES SA 2021 [facility] [place] SODIUM FLUORIDE 1.1% CREAM,ORAL APPLY DIRECTED TO TEETH TWICE DAILY DENTAL ACTIVE MEGAN QUINONES SA 2021 [facility] [place] [facility] [facility] Allergies, Adverse Reactions, Alerts Combined list of allergies from Department of Defense and Veterans Affairs facilities. It does not include entries that were removed or entered in error. Substance Category Reaction Severity Reaction type Status Date Reported Comments Source PENICILLIN Propensity to adverse reactions to drug (finding) Urticaria active 2 [facility] [place] [facility] Immunizations Combined list of available immunizations from the Department of Defense and Veterans Affairs facilities. Immunization Series Date Given Administered By Site Reaction Lot Number CVX Code Drug Sow Manager Status Comments Source INFLUENZA, UNSPECIFIED FORMULATION 2023 88 complet ed HISTORICA L INFORMATI ON - FROM PATIENT'S RECALL, [facility] INFLUENZA, UNSPECIFIED FORMULATION 2021 88 complet ed HISTORICA L INFORMATI ON - SOURCE UNSPECIFI ED, [facility] COVID-19 (PFIZER), MRNA, LNP-S, PF, 30 MCG/0.3 ML DOSE 3 2020 208 complet ed [facility] INFLUENZA, UNSPECIFIED FORMULATION 2020 88 complet ed [facility] COVID-19 (PFIZER), MRNA, LNP-S, PF, 30 MCG/0.3 ML DOSE 2 2020 208 complet ed [facility] COVID-19 (PFIZER), MRNA, LNP-S, PF, 30 MCG/0.3 ML DOSE 1 2020 208 complet ed [facility] PNEUMOCOCCAL CONJUGATE PCV 13 2019 133 complet ed yes [facility] TDAP 2013 115 complet ed [facility] PNEUMOCOCCAL POLYSACCHARID E PPV23 2011 33 complet ed [facility] Results Combined list of recent chemistry, hematology and other laboratory results from Department of Defense and Veterans Affairs, ranging from 15 months to all on record, depending upon the facility. Order Name Results Value Reference Range Date Interpretation Specimen Comments Source BASIC METABOLIC PANEL (non-fast ing) UREA NITROGEN [MASS/VOLUM E] IN SERUM OR PLASMA 16 mg/dL 7 - 07/26 Specimen Type: SERUM No comment entered. Ordering Provider: MOLLY JOHNSON Report Released Date/Time: Jul 26, 2024 09:59 AM Reporting Lab: [address] [address] Performing Lab: [address] [place] [address] [facility] BASIC METABOLIC PANEL (non-fast ing) GLUCOSE [MASS/VOLUM E] IN SERUM OR PLASMA 110 mg/dL 65 - 100 07/26 H Specimen Type: SERUM No comment entered. Ordering Provider: MOLLY JOHNSON Report Released Date/Time: Jul 26, 2024 09:59 AM Reporting Lab: [facility] [address] [facility] [address] Performing Lab: [facility] [address] [facility] [address] [facility] BASIC METABOLIC PANEL (non-fast ing) SODIUM [MOLES/VOLU ME] IN SERUM OR PLASMA 138 mmol/L 135 - 145 07/26 Specimen Type: SERUM No comment entered. Ordering Provider: MOLLY JOHNSON Report Released Date/Time: Jul 26, 2024 09:59 AM Reporting Lab: [facility] [address] [facility] [address] Performing Lab: [facility] [address] [facility] [address] [facility] BASIC METABOLIC PANEL (non-fast ing) POTASSIUM [MOLES/VOLU ME] IN SERUM OR PLASMA 4.5 mmol/L 3.5 - 5.0 07/26 Specimen Type: SERUM No comment entered. Ordering Provider: MOLLY JOHNSON Report Released Date/Time: Jul 26, 2024 09:59 AM Reporting Lab: [facility] [address] [facility] [address] Performing Lab: [facility] [address] [facility] [address] [facility] BASIC METABOLIC PANEL (non-fast ing) CHLORIDE [MOLES/VOLU ME] IN SERUM OR PLASMA 102 mmol/L 100 - 110 07/26 Specimen Type: SERUM No comment entered. Ordering Provider: MOLLY JOHNSON Report Released Date/Time: Jul 26, 2024 09:59 AM Reporting Lab: [facility] [address] [address] Performing Lab: [facility] [address] [facility] BASIC METABOLIC PANEL (non-fast ing) CARBON DIOXIDE, TOTAL [MOLES/VOLU ME] IN SERUM OR PLASMA 26 meq/L 20 - 30 07/26 Specimen Type: SERUM No comment entered. Ordering Provider: MOLLY JOHNSON Report Released Date/Time: Jul 26, 2024 09:59 AM Reporting Lab: [facility] [address] [address] Performing Lab: [facility] [address] [address] [facility] BASIC METABOLIC PANEL (non-fast ing) CREATININE [MASS/VOLUM E] IN SERUM OR PLASMA 0.79 mg/dL 0.50 - 1.40 07/26 Specimen Type: SERUM No comment entered. Ordering Provider: MOLLY JOHNSON Report Released Date/Time: Jul 26, 2024 09:59 AM Reporting Lab: [facility] [address] [address] Performing Lab: [facility] [address] [facility] BASIC METABOLIC PANEL (non-fast ing) GLOMERULAR FILTRATION RATE/1.73 SQ M.PREDICTED [VOLUME RATE/AREA] IN SERUM, PLASMA OR BLOOD BY CREATININE- BASED FORMULA (CKD-EPI 2020) >90mL/ min 60 07/26 Specimen Type: SERUM No comment entered. Ordering Provider: MOLLY JOHNSON Report Released Date/Time: Jul 26, 2024 09:59 AM Reporting Lab: [facility] [address] Performing Lab: [facility] [address] [facility] [place] [facility] CBC LEUKOCYTES [#/VOLUME] IN BLOOD BY AUTOMATED COUNT 7.05 10*3/u L 4.50 - 11.00 07/26 Specimen Type: BLOOD No comment entered. Ordering Provider: MOLLY JOHNSON Report Released Date/Time: Jul 26, 2024 09:59 AM Reporting Lab: [facility] [place] [address] [address] Performing Lab: [facility] [place] [address] [address] [facility] [place] [facility] CBC ERYTHROCYTE S [#/VOLUME] IN BLOOD BY AUTOMATED COUNT 5.95 10*6/u L 4.23 - 5.66 07/26 H Specimen Type: BLOOD No comment entered. Ordering Provider: MOLLY JOHNSON Report Released Date/Time: Jul 26, 2024 09:59 AM Reporting Lab: [place] [facility] [place] [address] [address] Performing Lab: [facility] [place] [address] [address] [place] [facility] [place] [facility] CBC HEMOGLOBIN [MASS/VOLUM E] IN BLOOD 16.5 g/dL 12.8 - 17 07/26 Specimen Type: BLOOD No comment entered. Ordering Provider: MOLLY JOHNSON Report Released Date/Time: Jul 26, 2024 09:59 AM Reporting Lab: [facility] [place] [address] [address] Performing Lab: [facility] [place] [address] [address] [facility] [place] [facility] CBC HEMATOCRIT [VOLUME FRACTION] OF BLOOD BY AUTOMATED COUNT 49.7 39.2 - 50.4 07/26 Specimen Type: BLOOD No comment entered. Ordering Provider: MOLLY JOHNSON Report Released Date/Time: Jul 26, 2024 09:59 AM Reporting Lab: [facility] [place] [place] [address] [address] Performing Lab: [facility] [place] [facility] [address] [facility] [address] [facility] [place] [facility] CBC MCV [ENTITIC VOLUME] BY AUTOMATED COUNT 83.5 fL 82 - 99 07/26 Specimen Type: BLOOD No comment entered. Ordering Provider: MOLLY JOHNSON Report Released Date/Time: Jul 26, 2024 09:59 AM Reporting Lab: [facility] [place] [facility] [address] [facility] [address] Performing Lab: [facility] [place] [facility] [address] [facility] [address] [facility] [place] [facility] CBC MCHC [MASS/VOLUM E] BY AUTOMATED COUNT 33.2 g/dL 30.8 - 35.1 07/26 Specimen Type: BLOOD No comment entered. Ordering Provider: MOLLY JOHNSON Report Released Date/Time: Jul 26, 2024 09:59 AM Reporting Lab: [facility] [place] [address] [address] Performing Lab: [facility] [place] [address] [address] [place] [facility] [place] [facility] CBC PLATELETS [#/VOLUME] IN BLOOD BY AUTOMATED COUNT 298 10*3/u L 140 - 360 07/26 Specimen Type: BLOOD No comment entered. Ordering Provider: MOLLY JOHNSON Report Released Date/Time: Jul 26, 2024 09:59 AM Reporting Lab: [facility] [place] [address] [address] Performing Lab: [facility] [place] [place] [address] [address] [facility] [place] [facility] CBC ERYTHROCYTE DISTRIBUTIO N WIDTH [RATIO] BY AUTOMATED COUNT 14.1 12.0 - 16.0 07/26 Specimen Type: BLOOD No comment entered. Ordering Provider: MOLLY JOHNSON Report Released Date/Time: Jul 26, 2024 09:59 AM Reporting Lab: [facility] [place] [facility] [address] [facility] [address] Performing Lab: [facility] [place] [facility] [address] [facility] [address] [facility] [place] [facility] CBC MCH [ENTITIC MASS] BY AUTOMATED COUNT 27.7 pg 26.2 - 32.6 07/26 Specimen Type: BLOOD No comment entered. Ordering Provider: MOLLY JOHNSON Report Released Date/Time: Jul 26, 2024 09:59 AM Reporting Lab: [facility] [place] [facility] [address] [facility] [address] Performing Lab: [facility] [place] [place] [facility] [address] [facility] [address] [facility] [place] [facility] HEMOGLOBI N A1C PANEL HEMOGLOBIN A1C/HEMOGLO BIN.TOTAL IN BLOOD BY HPLC 6.6 4.0 - 5.6 07/26 H Specimen Type: BLOOD Comment: Values obtained from A1C measurement s can vary. For atypical A1C assays, a reported value of 7.0 could actually be between 6.72 and 7.28 if measured by a reference method. A reported value of 9.0 could actually be between 8.73 and 9.27. Ref: http://www. ngsp.org/[place] Pdata.asp Ordering Provider: MOLLY JOHNSON Report Released Date/Time: Jul 26, 2024 09:59 AM Reporting Lab: [facility] [place] [address] [address] Performing Lab: [facility] [place] [facility] [address] [facility] [address] [facility] [place] [facility] MICROALBU MIN CREATININ E RATIO PANEL MICROALBUMI N/CREATININ E [MASS RATIO] IN URINE 7.2 mg/g 0 - 29.9 07/26 Specimen Type: URINE No comment entered. Ordering Provider: MOLLY JOHNSON Report Released Date/Time: Jul 26, 2024 09:59 AM Reporting Lab: [facility] [place] [address] [address] Performing Lab: [facility] [place] [facility] [address] [facility] [address] [facility] [place] [facility] MICROALBU MIN CREATININ E RATIO PANEL MICROALBUMI N [MASS/VOLUM E] IN URINE 0.6 mg/dL 07/26 Specimen Type: URINE No comment entered. Ordering Provider: MOLLY JOHNSON Report Released Date/Time: Jul 26, 2024 09:59 AM Reporting Lab: [facility] [facility] [address] [facility] [address] Performing Lab: [facility] [place] [facility] [address] [facility] [address] [facility] [facility] MICROALBU MIN CREATININ E RATIO PANEL CREATININE [MASS/VOLUM E] IN URINE 83.30 mg/dL 07/26 Specimen Type: URINE No comment entered. Ordering Provider: MOLLY JOHNSON Report Released Date/Time: Jul 26, 2024 09:59 AM Reporting Lab: [facility] [place] [address] [address] Performing Lab: [facility] [place] [address] [address] [facility] [facility] BASIC METABOLIC PANEL (fasting) UREA NITROGEN [MASS/VOLUM E] IN SERUM OR PLASMA 15 mg/dL 7 - 25 03/18 Specimen Type: SERUM No comment entered. Ordering Provider: TORO EVANS A Report Released Date/Time: Mar 18, 2024 08:48 AM Reporting Lab: [facility] [place] [address] [address] Performing Lab: [facility] [place] [address] [address] [facility] [place] [facility] BASIC METABOLIC PANEL (fasting) GLUCOSE [MASS/VOLUM E] IN SERUM OR PLASMA 138 mg/dL 65 - 100 03/18 H Specimen Type: SERUM No comment entered. Ordering Provider: TORO EVANS A Report Released Date/Time: Mar 18, 2024 08:48 AM Reporting Lab: [facility] [place] [address] [address] Performing Lab: [facility] [place] [facility] [address] [facility] [address] [facility] [place] [facility] BASIC METABOLIC PANEL (fasting) SODIUM [MOLES/VOLU ME] IN SERUM OR PLASMA 139 mmol/L 135 - 145 03/18 Specimen Type: SERUM No comment entered. Ordering Provider: TORO EVANS A Report Released Date/Time: Mar 18, 2024 08:48 AM Reporting Lab: [facility] [place] [facility] [address] [facility] [address] Performing Lab: [facility] [place] [facility] [address] [facility] [address] [facility] [facility] BASIC METABOLIC PANEL (fasting) POTASSIUM [MOLES/VOLU ME] IN SERUM OR PLASMA 4.3 mmol/L 3.5 - 5.0 03/18 Specimen Type: SERUM No comment entered. Ordering Provider: TORO EVANS A Report Released Date/Time: Mar 18, 2024 08:48 AM Reporting Lab: [facility] [place] [facility] [address] [facility] [address] Performing Lab: [place] [facility] [place] [facility] [address] [facility] [address] [facility] TRN [facility] BASIC METABOLIC PANEL (fasting) CHLORIDE [MOLES/VOLU ME] IN SERUM OR PLASMA 103 mmol/L 100 - 110 03/18 Specimen Type: SERUM No comment entered. Ordering Provider: TORO EVANS A Report Released Date/Time: Mar 18, 2024 08:48 AM Reporting Lab: [facility] [place] [facility] [address] [facility] [address] Performing Lab: [facility] [place] [facility] [address] [facility] [address] [facility]N [facility] BASIC METABOLIC PANEL (fasting) CARBON DIOXIDE, TOTAL [MOLES/VOLU ME] IN SERUM OR PLASMA 27 meq/L 20 - 30 03/18 Specimen Type: SERUM No comment entered. Ordering Provider: TORO EVANS A Report Released Date/Time: Mar 18, 2024 08:48 AM Reporting Lab: [facility] [place] [facility] [address] [facility] [address] Performing Lab: [facility] [place] [facility] [address] [facility] [address] [facility] BASIC METABOLIC PANEL (fasting) CREATININE [MASS/VOLUM E] IN SERUM OR PLASMA 0.80 mg/dL 0.50 - 1.40 03/18 Specimen Type: SERUM No comment entered. Ordering Provider: TORO EVANS A Report Released Date/Time: Mar 18, 2024 08:48 AM Reporting Lab: [facility] [place] [facility] [address] [facility] [address] Performing Lab: [facility] [place] [facility] [address] [facility] [address] [facility] TRN [facility]CHUSE [facility] BASIC METABOLIC PANEL (fasting) GLOMERULAR FILTRATION RATE/1.73 SQ M.PREDICTED [VOLUME RATE/AREA] IN SERUM, PLASMA OR BLOOD BY CREATININE- BASED FORMULA (CKD-EPI 2020) >90mL/ min 60 03/18 Specimen Type: SERUM No comment entered. Ordering Provider: TORO EVANS A Report Released Date/Time: Mar 18, 2024 08:48 AM Reporting Lab: [facility] [place] [facility] [address] [facility] [address] Performing Lab: [facility] [address] [facility] [address] [facility]N [facility] CBC AND DIFF (AUTO) LEUKOCYTES [#/VOLUME] IN BLOOD BY AUTOMATED COUNT 6.38 10*3/u L 4.50 - 11.00 03/18 Specimen Type: BLOOD No comment entered. Ordering Provider: TORO EVANS A Report Released Date/Time: Mar 18, 2024 08:48 AM Reporting Lab: [facility] [place] [facility] [address] [facility] [address] Performing Lab: [place] [facility] [place] [address] [address] [facility] [place] [facility] CBC AND DIFF (AUTO) ERYTHROCYTE S [#/VOLUME] IN BLOOD BY AUTOMATED COUNT 5.54 10*6/u L 4.23 - 5.66 03/18 Specimen Type: BLOOD No comment entered. Ordering Provider: TORO EVANS A Report Released Date/Time: Mar 18, 2024 08:48 AM Reporting Lab: [facility] [place] [facility] [address] [facility] [address] Performing Lab: [facility] [place] [facility] [address] [facility] [address] [facility] [place] [facility] CBC AND DIFF (AUTO) HEMOGLOBIN [MASS/VOLUM E] IN BLOOD 15.7 g/dL 12.8 - 17 03/18 Specimen Type: BLOOD No comment entered. Ordering Provider: TORO EVANS A Report Released Date/Time: Mar 18, 2024 08:48 AM Reporting Lab: [facility] [place] [place] [address] [address] Performing Lab: [place] [facility] [place] [facility] [address] [facility] [address] [facility] [place] [facility] CBC AND DIFF (AUTO) HEMATOCRIT [VOLUME FRACTION] OF BLOOD BY AUTOMATED COUNT 46.9 39.2 - 50.4 03/18 Specimen Type: BLOOD No comment entered. Ordering Provider: TORO EVANS A Report Released Date/Time: Mar 18, 2024 08:48 AM Reporting Lab: [facility] [place] [place] [facility] [address] [facility] [address] Performing Lab: [facility] [place] [facility] [address] [facility] [address] [facility] [place] [facility] CBC AND DIFF (AUTO) MCV [ENTITIC VOLUME] BY AUTOMATED COUNT 84.7 fL 82 - 99 03/18 Specimen Type: BLOOD No comment entered. Ordering Provider: TORO EVANS A Report Released Date/Time: Mar 18, 2024 08:48 AM Reporting Lab: [facility] [place] [address] [address] Performing Lab: [facility] [place] [place] [facility] [address] [facility] [facility] [address] [facility] [place] [facility] CBC AND DIFF (AUTO) MCHC [MASS/VOLUM E] BY AUTOMATED COUNT 33.5 g/dL 30.8 - 35.1 03/18 Specimen Type: BLOOD No comment entered. Ordering Provider: TORO EVANS A Report Released Date/Time: Mar 18, 2024 08:48 AM Reporting Lab: [facility] [place] [facility] [address] [facility] [facility] [address] Performing Lab: [facility] [place] [facility] [address] [facility] [address] [facility] [place] [facility] CBC AND DIFF (AUTO) PLATELETS [#/VOLUME] IN BLOOD BY AUTOMATED COUNT 258 10*3/u L 140 - 360 03/18 Specimen Type: BLOOD No comment entered. Ordering Provider: TORO EVANS A Report Released Date/Time: Mar 18, 2024 08:48 AM Reporting Lab: [facility] [place] [facility] [address] [facility] [facility] [address] Performing Lab: [facility] [place] [facility] [address] [facility] [address] [facility] [place] [facility] CBC AND DIFF (AUTO) ERYTHROCYTE DISTRIBUTIO N WIDTH [RATIO] BY AUTOMATED COUNT 14.0 12.0 - 16.0 03/18 Specimen Type: BLOOD No comment entered. Ordering Provider: TORO EVANS A Report Released Date/Time: Mar 18, 2024 08:48 AM Reporting Lab: [facility] [place] [facility] [address] [facility] [address] [address] Performing Lab: [facility] [address] [facility] [address] [facility] CBC AND DIFF (AUTO) MONOCYTES [#/VOLUME] IN BLOOD BY AUTOMATED COUNT 0.56 10*3/u L 0.30 - 1.10 03/18 Specimen Type: BLOOD No comment entered. Ordering Provider: TORO EVANS A Report Released Date/Time: Mar 18, 2024 08:48 AM Reporting Lab: [facility] [address] [facility] [address] Performing Lab: [facility] [address] [facility] [address] [facility] CBC AND DIFF (AUTO) MCH [ENTITIC MASS] BY AUTOMATED COUNT 28.3 pg 26.2 - 32.6 03/18 Specimen Type: BLOOD No comment entered. Ordering Provider: TORO EVANS A Report Released Date/Time: Mar 18, 2024 08:48 AM Reporting Lab: [facility] [address] [facility] [address] Performing Lab: [facility] [place] [facility] [address] [facility] [address] [facility] CBC AND DIFF (AUTO) NEUTROPHILS /100 LEUKOCYTES IN BLOOD BY AUTOMATED COUNT 62.2 43.7 - 75.8 03/18 Specimen Type: BLOOD No comment entered. Ordering Provider: TORO EVANS A Report Released Date/Time: Mar 18, 2024 08:48 AM Reporting Lab: [facility] [address] [facility] [address] Performing Lab: [facility] [address] [facility] [address] [facility] CBC AND DIFF (AUTO) LYMPHOCYTES /100 LEUKOCYTES IN BLOOD BY AUTOMATED COUNT 26.5 14.0 - 42.3 03/18 Specimen Type: BLOOD No comment entered. Ordering Provider: TORO EVANS A Report Released Date/Time: Mar 18, 2024 08:48 AM Reporting Lab: [facility] [address] [facility] [address] Performing Lab: [facility] [address] [facility] [address] [facility] CBC AND DIFF (AUTO) MONOCYTES/1 00 LEUKOCYTES IN BLOOD BY AUTOMATED COUNT 8.8 5.1 - 13.7 03/18 Specimen Type: BLOOD No comment entered. Ordering Provider: TORO EVANS A Report Released Date/Time: Mar 18, 2024 08:48 AM Reporting Lab: [facility] [address] [place] [address] Performing Lab: [facility] [address] [facility] [address] [facility] CBC AND DIFF (AUTO) EOSINOPHILS /100 LEUKOCYTES IN BLOOD BY AUTOMATED COUNT 1.9 0.4 - 6.8 03/18 Specimen Type: BLOOD No comment entered. Ordering Provider: TORO EVANS A Report Released Date/Time: Mar 18, 2024 08:48 AM Reporting Lab: [facility] [address] [place] [address] Performing Lab: [facility] [place] [address] [address] [facility] CBC AND DIFF (AUTO) BASOPHILS/1 00 LEUKOCYTES IN BLOOD BY AUTOMATED COUNT 0.3 0.1 - 2.0 03/18 Specimen Type: BLOOD No comment entered. Ordering Provider: TORO EVANS A Report Released Date/Time: Mar 18, 2024 08:48 AM Reporting Lab: [facility] [place] [address] [address] Performing Lab: [facility] [place] [address] [address] [facility] CBC AND DIFF (AUTO) NEUTROPHILS [#/VOLUME] IN BLOOD BY AUTOMATED COUNT 3.97 10*3/u L 2.20 - 7.60 03/18 Specimen Type: BLOOD No comment entered. Ordering Provider: TORO EVANS A Report Released Date/Time: Mar 18, 2024 08:48 AM Reporting Lab: [facility] [address] [place] [address] Performing Lab: [facility] [address] [place] [address] [facility] CBC AND DIFF (AUTO) LYMPHOCYTES [#/VOLUME] IN BLOOD BY AUTOMATED COUNT 1.69 10*3/u L 1.00 - 3.20 03/18 Specimen Type: BLOOD No comment entered. Ordering Provider: TORO EVANS A Report Released Date/Time: Mar 18, 2024 08:48 AM Reporting Lab: [facility] [address] [facility] [address] Performing Lab: [facility] [place] [address] [address] [facility] CBC AND DIFF (AUTO) EOSINOPHILS [#/VOLUME] IN BLOOD BY AUTOMATED COUNT 0.12 10*3/u L 0.03 - 0.44 03/18 Specimen Type: BLOOD No comment entered. Ordering Provider: TORO EVANS A Report Released Date/Time: Mar 18, 2024 08:48 AM Reporting Lab: [facility] [place] [address] [address] Performing Lab: [facility] [place] [address] [address] [facility] CBC AND DIFF (AUTO) BASOPHILS [#/VOLUME] IN BLOOD BY AUTOMATED COUNT 0.02 10*3/u L 0.01 - 0.13 03/18 Specimen Type: BLOOD No comment entered. Ordering Provider: TORO EVANS A Report Released Date/Time: Mar 18, 2024 08:48 AM Reporting Lab: [facility] [place] [address] [address] Performing Lab: [facility] [place] [address] [address] [facility] CBC AND DIFF (AUTO) IMMATURE GRANULOCYTE S/100 LEUKOCYTES IN BLOOD BY AUTOMATED COUNT 0.3 0.0 - 0.7 03/18 Specimen Type: BLOOD No comment entered. Ordering Provider: TORO EVANS A Report Released Date/Time: Mar 18, 2024 08:48 AM Reporting Lab: [facility] [place] [address] [address] Per[facility] Lab[facility] [address] [facility] [address] [facility] CBC AND DIFF (AUTO) IMMATURE GRANULOCYTE S [#/VOLUME] IN BLOOD 0.02 10*3/u L 0.00 - 0.06 03/18 Specimen Type: BLOOD No comment entered. Ordering Provider: TORO EVANS A Report Released Date/Time: Mar 18, 2024 08:48 AM Reporting Lab: [facility] [address] [facility] [facility] [address] Performing Lab: [facility]ITALUSE[address] [address] [facility] CBC AND DIFF (AUTO) NRBC % 0.0 0.0 - 0.0 03/18 Specimen Type: BLOOD No comment entered. Ordering Provider: TORO EVANS A Report Released Date/Time: Mar 18, 2024 08:48 AM Reporting Lab: [facility] [address] [facility] [address] Performing Lab: [facility]ITAL[facility] [address] [facility] CBC AND DIFF (AUTO) NRBC, ABS 0.00 10*3/u L 0.00 - 0.00 03/18 Specimen Type: BLOOD No comment entered. Ordering Provider: TORO EVANS A Report Released Date/Time: Mar 18, 2024 08:48 AM Reporting Lab: [facility]ITALUSE[address] [address] Performing Lab: [facility] [address] [facility]ITALUSE [facility] HEMOGLOBI N A1C PANEL HEMOGLOBIN A1C/HEMOGLO BIN.TOTAL IN BLOOD BY HPLC 6.9 4.0 - 5.6 03/18 H Specimen Type: BLOOD Comment: Values obtained from A1C measurement s can vary. For atypical A1C assays, a reported value of 7.0 could actually be between 6.72 and 7.28 if measured by a reference method. A reported value of 9.0 could actually be between 8.73 and 9.27. Ref: http://www. ngsp.org/[place] Pdata.asp Ordering Provider: TORO EVANS A Report Released Date/Time: Mar 18, 2024 08:48 AM Reporting Lab: [facility] [place] [facility] [address] [facility] [address] Performing Lab: [facility] [place] [facility] [address] [facility] [address] [facility] [place] [facility] LIPID PANEL FASTING CHOLESTEROL [MASS/VOLUM E] IN SERUM OR PLASMA 154 mg/dL 03/18 Specimen Type: SERUM No comment entered. Ordering Provider: TORO EVANS A Report Released Date/Time: Mar 18, 2024 08:48 AM Reporting Lab: [facility] [place] [address] [address] Performing Lab: [facility] [place] [facility] [address] [facility] [address] [facility] [place] [facility] LIPID PANEL FASTING TRIGLYCERID E [MASS/VOLUM E] IN SERUM OR PLASMA 102 mg/dL 0 - 150 03/18 Specimen Type: SERUM No comment entered. Ordering Provider: TORO EVANS A Report Released Date/Time: Mar 18, 2024 08:48 AM Reporting Lab: [facility] [place] [address] [address] Performing Lab: [facility] [place] [facility] [address] [facility] [address] [facility] [place] [facility] LIPID PANEL FASTING CHOLESTEROL IN LDL [MASS/VOLUM E] IN SERUM OR PLASMA BY CALCULATION 94 mg/dL 0 - 129 03/18 Specimen Type: SERUM No comment entered. Ordering Provider: TORO EVANS A Report Released Date/Time: Mar 18, 2024 08:48 AM Reporting Lab: [facility] [place] [facility] [address] [facility] [facility] [address] Performing Lab: [facility] [place] [facility] [address] [facility] [address] [facility] [place] [facility] LIPID PANEL FASTING CHOLESTEROL .TOTAL/CHOL ESTEROL IN HDL [MASS RATIO] IN SERUM OR PLASMA 3.9 03/18 Specimen Type: SERUM No comment entered. Ordering Provider: TORO EVANS A Report Released Date/Time: Mar 18, 2024 08:48 AM Reporting Lab: [facility] [place] [address] [address] Performing Lab: [facility] [place] [facility] [address] [facility] [facility] [address] [facility] [place] LIPID PANEL FASTING CHOLESTEROL IN HDL [MASS/VOLUM E] IN SERUM OR PLASMA 40 mg/dL 40 - 60 03/18 Specimen Type: SERUM No comment entered. Ordering Provider: TORO EVANS A Report Released Date/Time: Mar 18, 2024 08:48 AM Reporting Lab: [facility] [place] [address] [address] Performing Lab: [facility] [place] [address] [address] [facility] [place] [facility] LIVER FUNCTION PROTEIN [MASS/VOLUM E] IN SERUM OR PLASMA 7.2 g/dL 6.0 - 8.3 03/18 Specimen Type: SERUM No comment entered. Ordering Provider: TORO EVANS A Report Released Date/Time: Mar 18, 2024 08:48 AM Reporting Lab: [facility] [place] [address] [address] Performing Lab: [facility] [place] [address] [address] [facility] [place] [facility] LIVER FUNCTION ALBUMIN [MASS/VOLUM E] IN SERUM OR PLASMA 4.3 g/dL 3.5 - 5.0 03/18 Specimen Type: SERUM No comment entered. Ordering Provider: TORO EVANS A Report Released Date/Time: Mar 18, 2024 08:48 AM Reporting Lab: [facility] [place] [address] [address] Performing Lab[facility] [address] [facility] [address] [facility] [place] [facility] LIVER FUNCTION ALKALINE PHOSPHATASE [ENZYMATIC ACTIVITY/VO LUME] IN SERUM OR PLASMA 61 U/L 40 - 150 03/18 Specimen Type: SERUM No comment entered. Ordering Provider: TORO EVANS A Report Released Date/Time: Mar 18, 2024 08:48 AM Reporting Lab: [facility] [address] [facility] [address] Performing Lab: [facility] [address] [facility] [address] [facility] [place] [facility] LIVER FUNCTION ASPARTATE AMINOTRANSF ERASE [ENZYMATIC ACTIVITY/VO LUME] IN SERUM OR PLASMA 13 U/L 5 - 34 03/18 Specimen Type: SERUM No comment entered. Ordering Provider: TORO EVANS A Report Released Date/Time: Mar 18, 2024 08:48 AM Reporting Lab: [facility] [address] [facility] [address] Performing Lab: [facility] [place] [facility] [address] [facility] [address] [facility] [place] [facility] LIVER FUNCTION ALANINE AMINOTRANSF ERASE [ENZYMATIC ACTIVITY/VO LUME] IN SERUM OR PLASMA 13 U/L 03/18 Specimen Type: SERUM No comment entered. Ordering Provider: TORO EVANS A Report Released Date/Time: Mar 18, 2024 08:48 AM Reporting Lab: [facility] [address] [facility] [address] Performing Lab: [facility] [address] [facility] [address] [facility] [place] LIVER FUNCTION BILIRUBIN.T OTAL [MASS/VOLUM E] IN SERUM OR PLASMA 1.1 mg/dL 0.2 - 1.2 03/18 Specimen Type: SERUM No comment entered. Ordering Provider: TORO EVANS A Report Released Date/Time: Mar 18, 2024 08:48 AM Reporting Lab: [facility] [place] [facility] [address] [facility] [address] Performing Lab: [facility] [place] [facility] [address] [facility] [address] [facility] [place] [facility] TSH THYROTROPIN [UNITS/VOLU ME] IN SERUM OR PLASMA 0.71 u[IU]/ mL 0.35 - 5.00 03/18 Specimen Type: SERUM No comment entered. Ordering Provider: TORO EVANS Report Released Date/Time: Mar 18, 2024 08:48 AM Reporting Lab: [facility] [place] [facility] [address] [facility] [address] Performing Lab: [facility] [place] [facility] [address] [facility] [address] [place] [facility] [facility] Vital Signs Combined list of inpatient and outpatient Vital Signs from Department of Defense and Veterans Affairs, ranging from 12 months to all on record, depending upon the facility. Vital Sign Value Date Comments Source SYSTOLIC BLOOD PRESSURE 167 07/29/19 25 15:18:18 [facility] DIASTOLIC BLOOD PRESSURE 81 025 15:18:18 [facility] PULSE OXIMETRY 97 07/29/2024 15:18:18 [facility] WEIGHT 192.4 07/29/2024 15:18:18 [facility] BMI 26 kg/m2 07/29/2024 15:18:18 [facility] TEMPERATURE 96.9 07/29/2024 15:18:18 [facility] PULSE 86 07/29/2024 15:18:18 [facility] WEIGHT 195 03/24/2024 09:55:16 [facility] [place] [facility] BMI 27 kg/m2 03/24/2024 09[facility]55:16 [facility] [place] [facility] Encounters Combined list of: 1) Encounters from Department of Veterans Affairs facilities going backup to the last 18 months, not all [place] inpatient encounters are included; 2) Encounters from the Department of Defense facilities going backup to 280 months. 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 sinuses ERVIN,TROY IC K 08/29 [place] [facility] Out[facility] Encounter [id number] 08/29 [facility] [place] MTMS BY PHARM ADDL 15 MIN [id number] Diagnos is: ICD-10- CM E11.9 Type 2 diabete s mellitu s without complic ations [facility] PILO Karla 09/04 [place] [facility] Out[facility] Encounter [id number] 09/10 [facility] [place] MTMS BY PHARM ADDL 15 MIN [id number] Diagnos is: ICD-10- CM E11.9 Type 2 diabete s mellitu s without complic ations LOCO JOHNSON 10/08 [place] [facility] Encounter [id number] 10/19 [facility] [place] O/P EST LOW 20 MIN [id number] Diagnos is: ICD-10- CM E11.9 Type 2 diabete s mellitu s without complic ations OBIE QUINONES 10/19 [place] [facility] PHYS/QHP EQP [id number] Diagnos is: ICD-10- CM E11.9 Type 2 diabete s mellitu s without complic ations LOCO JOHNSON 11/06 [place] [facility] MNTR ANALYSIS I&R [id number] Diagnos is: ICD-10- CM E11.9 Type 2 diabete s mellitu s without complic ations LOCO JOHNSON 11/20 [place] [facility] Encounter [id number] 11/20 [facility] En[facility] [id number] 11/23 [facility] [place] [place] BY PHARM ADDL 15 MIN [id number] Diagnos is: ICD-10- CM E11.9 Type 2 diabete s mellitu s without complic ations [place]O J[place] [facility] Out[facility] Encounter [id number] 03/24 [facility] En[facility] [id number] [facility] [place] O/P EST MOD 30 MIN [id number] Diagnos is: ICD-10- CM E11.9 Type 2 diabete s mellitu s without complic ations GRAY EVANS [place] [facility] Out[facility] Encounter [id number] [facility] [place] MT[place] BY PHARM ADDL 15 MIN [id number] Diagnos is: ICD-10- CM E11.9 Type 2 diabete s mellitu s without complic ations [place] [facility] NQHP OL DIG ASSMT&MGMT 5-10 [id number] Diagnos is: ICD-10- CM E11.9 Type 2 diabete s mellitu s without complic ations SNEHA RASMUSSNE A 08/12 [facility] Social History Combined list of available smoking, tobacco, and other social history from Department of Defense and Veterans Affairs facilities. Social History Type Response Date Comment Sour e Tobacco smoking status NHIS [facility] NEVER USED 10/20/19 [facility] History of tobacco use [place]-TO[place] NEVER USED 10/02/2022 [facility] History of tobacco use [place]-TOBACCO NEVER USED 10/01/2021 [facility] Plan of Care List of future care activities from Department of Veterans Affairs facilities. Additional future care activities may be listed in the Assessment and Plan section. Date/Time Care Activity Care Activity Detail Facili ty 12/16/2024 AMBULATORY - MEDICINE AMBULATORY - MEDICI NE [facility]
--- OUTSIDE RECORDS SUMMARY | 2024-12-02 09:22 | XMS_ITS | Encounter Summary ---
Author Name [facility] [place] Organization [facility] [place] [place] Address [address] [place] [address] Care Team Providers Care People Manager Name Role Phone SAHRA EVANS Primary Care Provider Unavailabl e Insurance Providers: All historical and current Section Date Range: From patient's date of to the date document was created. This section includes the names of all active insurance providers for the patient. Insurance Provider Type of Coverage Plan Name Start of Policy Coverage End of Policy Coverage Group Number Member ID Insurance Provider's Telephone Number Policy Haider's Name Patient's Relationship to Policy Haider [place] PREFERRED PROVIDER ORGANIZAT ION (PPO) BASIC SELF PLUS ONE Jul 14, 2015 [id number] [phone] NAREN ADAM JR PATIENT [facility] FEP PREFERRED PROVIDER ORGANIZAT ION (PPO) BASIC FAMIL Y Jul 16, 2008 [id number] [phone] NAREN ADAM JR PATIENT MEDICARE (WNR) MEDICARE (M) PART A Jan 12, 2020 PART A [id number] [place] ADAM AMOUMOU PATIENT MEDICARE (WNR) MEDICARE (M) PART B Jan 12, 2020 PART B [id number] [phone] Triston ADAM PATIENT Selected Encounter This section includes the information on record at CT for the Encounter. Date/Time Encounter Type Encounter Description Reason Provider Source Jul 29, 2024 03:00 PM OFFICE O/P EST MOD 30 MIN PRIMARY CARE/MEDICINE ICD-10-CM E11.9 Type 2 diabetes mellitus without complications SAHRA EVANS [place] Encounter Template Text not used by CT Assessments - Encounter Diagnoses This section includes the primary and secondary diagnoses documented for the Encounter. Date/Time Primary/Secondary Diagnosis Diagnosis Name Provider Source Aug 09, 2024 02:32 PM PRIMARY Type 2 diabetes mellitus without complications SAHRA EVANS [place] Aug 09, 2024 02:32 PM SECONDARY Essential (primary) hypertension SAHRA EVANS [place] Aug 09, 2024 02:32 PM SECONDARY Gastro-esophageal reflux disease without esophagitis SAHRA EVANS [place] Aug 09, 2024 02:32 PM SECONDARY Sleep apnea, unspecified SAHRA EVANS Plan of Treatment: Future Appointments (+ 6 months) and Future Tests (+/- 45 days) The Plan of Treatment section includes future care activities for the patient from all CT treatmentfacilities. This section includes future appointments and future orders which are active, pending or scheduled. Future Appointments This section includes appointments that were scheduled to occur 6 months from the date of the Encounter, up to a maximum of 20 appointments. The data comes from all CT treatment facilities. Appointment Date/Time Appointment Type Appointme nt Facility Name Aug 05, 2024 10:00 AM [facility] Dec 16, 2024 09:30 AM AMBULATORY - MEDICINE [facility] Lab Results: +/- 30 days of the encounter This section includes the Chemistry and Hematology Lab Results on record with CT for the patient. Radiology Reports and Pathology Reports are provided separately, in subsequent sections. Lab Results This section contains the Chemistry/Hematology Results that were resulted 30 days before or 30 daysafter the date of the Encounter. Date/Time Source Result Type Result - Unit Interpretation Reference Range Specimen Type Comment Jul 26, 2024 10:25 AM [facility] HEMOGLOBIN A1C PANEL BLOOD Specimen Type: BLOOD Comment: Values obtained from A1C measurements can vary. For atypical A1C assays, a reported value of 7.0 could actually be between 6.72 and 7.28 if measured by a reference method. A reported value of 9.0 could actually be between 8.73 and 9.27. Ref: http://www.ngsp .org/CAPdata.as p Ordering Provider: JEET JOHNSON Report Released Date/Time: Jul 26, 2024 09:59 AM Reporting Lab: [address] [address] Performing Lab: [address] [id number] HEMOGLOBIN A1C 6.6 H 4.0-5.6 Jul 26, 2024 10:25 AM [facility] MICROALBUMIN CREATININE RATIO PANEL URINE Spe cimen Type: URINE No comment entered. Ordering Provider: JEET JOHNSON Report Released Date/Time: Jul 26, 2024 09:59 AM Reporting Lab: [address] [address] Performing Lab: [address] [address] MICROALBUMIN/CREATININE RATIO 7.2 mg/g 0 -29.9 MICROALBUMIN,QUANTITATIVE 0.6 mg/dL RR U NAVAIL CREATININE URINE 83.30 mg/dL Jul 26, 2024 10:25 AM [facility] BASIC METABOLIC PANEL (non-fasting) SERUM Spe cimen Type: SERUM No comment entered. Ordering Provider: JEET JOHNSON Report Released Date/Time: Jul 26, 2024 09:59 AM Reporting Lab: [address] [address] Performing Lab: [address] [address] UREA NITROGEN 16 mg/dL 7-25 GLUCOSE 110 mg/dL H 65-100 SODIUM 138 mmol/L 135-145 POTASSIUM 4.5 mmol/L 3.5-5.0 CHLORIDE 102 mmol/L 100-110 CO2 26 meq/L 20-30 CREATININE, Serum 0.79 mg/dL 0.50-1.40 eGFR(CKD-EPI 2020) >90 mL/min >60 Jul 26, 2024 10:25 AM [facility] CBC BLOOD Specimen Type: BLOOD No comment entered. Ordering Provider: JEET JOHNSON Report Released Date/Time: Jul 26, 2024 09:59 AM Reporting Lab: [facility] [address] [address] Performing Lab: [facility] [address] [address] WBC 7.05 10*3/uL 4.50-11.00 RBC 5.95 10*6/uL H 4.23-5.66 HGB 16.5 g/dL 12.8-17 HCT 49.7 39.2-50.4 MCV 83.5 fL 82-99 MCHC 33.2 g/dL 30.8-35.1 PLT 298 10*3/uL 140-360 RDW-CV 14.1 12.0-16.0 MCH 27.7 pg 26.2-32.6 Vital Signs: All taken on the encounter date This section contains inpatient and outpatient Vital Signs collected on the date of the Encounter. Date/Time Temperature Pulse Blood Pressure Respiratory Rate SP02 Pain Height Weight Body Mass Index Source Jul 29, 2024 03:30 PM 150/74 [place] Jul 29, 2024 03:18 PM 96.9 86 167/81 97 192.4 26 [facility] [place] Social History: Smoking Status (Most current) and Tobacco Use (All prior to encounter date) This section includes the most current, and the historical, smoking and tobacco- related health factors from the CT facility where the Encounter took place. Current Smoking Status This section includes the most current smoking, or tobacco-related health factor, from the CT facility where the Encounter took place. Date/Time Current Smoking Status Comment Asher maya Oct 20, 2023 10:[address]-TOBACCO NEVER USED [place] Tobacco Use History This section includes a history of the smoking, or tobacco-related health factors, that were collected on or before the date of the Encounter. The data comes from the CT facility where the Encounter took place. Date/Time Smoking Status/Tobacco Use Comment F acility Oct 02, 2022 09:[address]-TOBACCO NEVER USED [place] Oct 01, 2021 02:[address]-TOBACCO NEVER USED [place] Encounter Notes: All associated encounter notes This section contains the clinical notes associated to the Encounter. Date/Time Encounter Note(s) Provider Source Jul 29, 2024 03:37 PM PRIMARY CARE NURSE PRACTITIONER OUTPATIENT NOTE: LOCAL TITLE: NURSE PRACTITIONER OUTPATIENT NOTE STANDARD TITLE: PRIMARY CARE NURSE PRACTITIONER OUTPATIENT NOTE DATE OF NOTE: JUL 29, 2024@15:37 ENTRY DATE: JUL 29, 2024@15:37:58 AUTHOR: SAHRA EVANS COSIGNER: URGENCY: STATUS: COMPLETED PRIMARY CARE VISIT NAREN ADAM, is a 69 yo WHITE MALE [place] who presents at the [facility]. TYPE OF VISIT: Face to face 69-year-old with GERD, HTN, insulin-dependent diabetes, and BRI no longer using CPAP presented to the outpatient clinic in regular follow-up. He is seen in transfer from [facility]. He is comanaged with a community PCP and sees several specialists as well. Last colonoscopy was 12/28/2020 No current concerns today. No recent illnesses or ED/UC visits. No falls. Recent labs and diagnostic studies were reviewed with the . All medications were reconciled during this visit. HEALTHCARE PROVIDERS: Community PCP: Dr. Natalio Clancy Urology: Dr. Gonzalez Pulmonology: Dr. Carvajal Ophthalmology: Dr. Martinez Diabetes: Guilherme MONET Physiatry: spine and sport (spinal injection) Podiatry: CT, Dr. Martinez Endocrine: [facility] Social Hx: The is and lives with his . He has never smoked. He drinks alcohol rarely. No marijuana or illicits. He is retired from the [employer] in 2012. 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 HISTORY: PERIOD OF SERVICE - [employer] FROM Apr TO Apr COMBAT SERVICE INDICATED: No MEDICAL HISTORY Active Problem Outside Providers R69. 10/01/2021 SYMONE QUINONES Gastroesophageal reflux disease K21 10/01/2021 SYMONE QUINONES Erectile dysfunction N52.9 10/01/2021 SYMONE QUINONES Benign essential hypertension I10. 09/27/2021 SYMONE QUINONES Sleep apnea G47.30 09/27/2021 SYMONE QUINONES Type 2 diabetes mellitus E11.9 09/27/2021 SYMONE QUINONES VITAL SIGNS: Temperature 96.9 F [36.1 C] (07/29/2024 15:18) Blood Pressure 167/81 (07/29/2024 15:18) Pulse 86 (07/29/2024 15:18) Respiration 16 (10/20/2023 10:45) Pain 0 (10/20/2023 10:45) BMI BMI: 26.1 Weight 192.4 lb [87.27 kg] (07/29/2024 15:18) Pulse Oximetry 97% (07/29/2024 15:18) ASSISTIVE DEVICES: None REVIEW OF SYSTEMS: CONSTITUTIONAL: No fevers, chills, weight loss/gain ENT: No sore throat, sneezing, congestion, rhinorrhea, anosmia, or ageusia. CARDIOVASCULAR: No chest pain, palpitations, or increased pedal edema RESPIRATORY: No SOB, cough, sputum, wheeze. GASTROINTESTINAL: Denies abd pain, N/V/D. No melena or hematochezia. No tenesmus or constipation. GENITOURINARY: No burning micturition. No urinary frequency or urgency. No nocturia. MUSCULOSKELETAL: No myalgias or arthralgias. PSYCHIATRIC: No new anxiety or depression. No sleep disturbance. NEUROLOGIC: No headaches, dizziness, numbness or tingling in the extremities, or unilateral weakness. EXAMINATION General: Well-appearing in no obvious distress. Mental Status: Alert and oriented x4. Head: Normocephalic. Eyes: PERRLA. EOMI. Anicteric sclerae. ENT: Moist oral mucosa. Posterior pharynx unremarkable Neck: Supple. No JVD. No LAD. No bruit. Lungs: CTA. Normal chest excursion. Eupneic respirations. CV: Heart tones S1, S2. RRR. No M/G/R. No peripheral edema GI: Abdomen is soft and nontender. No HSM or mass. : No CVA tenderness. Ext: No cyanosis or clubbing. No gross deformities. Neuro: CN II through XII grossly intact. Normal speech. Normal gait. Integument: Skin warm and dry. No concerning lesions or rashes. Psych: Normal mood and affect. Normal judgment. ALLERGIES: ========= PENICILLIN >> HEALTH MAINTENANCE PREVENTIVE MEDICINE GOALS Home Telehealth ([facility]) Referral Oct 19 Pneumococcal PPSV23 (Pneumovax) May 23 Primary Care Provider Search DUE NOW Medication Reconciliation DUE NOW Td / Tdap Immunization Jan 24 HTN Assess for Elevated BP>=140/90 DUE NOW Herpes Zoster (Shingles) Vaccine DUE NOW RSV Immunization DUE NOW (Optional) Whole Health Documentation DUE NOW ASSESSMENT/PLAN: Active problems - Computerized Problem List is the source for the following: Gastroesophageal reflux disease: Asymptomatic with PPI. Renew omeprazole today. Benign essential hypertension: Blood pressure not well-controlled today despite several measurements. Currently 150/74. The patient insists that her blood pressure is normal at home in the 120s over 60s typically. Possible white coat component. For now, continue lisinopril 2.5 mg daily. Sleep apnea: States that he no longer needs to use CPAP since a 40 pound weight loss. Denies any symptoms of untreated CPAP, i.e. daytime fatigue, headaches, snoring. Type 2 diabetes mellitus: Well-controlled with HbA1c 6.6%. Maintained on empagliflozin, metformin, semaglutide, and atorvastatin. Following with CPPDr. Johnson. FOLLOW UP: RTC Below & sooner PRN UPCOMING APPOINTMENTS: 08/05/2024 09:30 [facility] 30 minutes spent in patient evaluation, data review, and patient education. All medications were reconciled during this visit. No barriers; Patient understands and agrees to current treatment plan. If pt has any questions, concerns, or changes in current health status he/she will call [facility] Medication Reconciliation: Outpatient: Has the patient been taking medications as documented in the EMLR? YES: The patient has been taking medications as documented in the EMLR. Essential Medication List for Review used to complete this medication reconciliation. INCLUDED IN THIS LIST: Alphabetical list of active outpatient prescriptions dispensed from this CT (local) and dispensed from another CT or [facility] facility (remote) as well as inpatient orders (local, pending and active), local clinic medications, locally documented non-VA medications, and local prescriptions that have or been discontinued in the past 90 days. - All changes in medications, including all non-VA/Herbal/OTC medications were entered into CPRS. - If there were any medications the patient should no longer take, they were discontinued. - The patient/caregiver was instructed to update this list, discard old lists, and take this list to the next appointment, whether with a [facility] or non-VA provider. HTN Assess for Elevated BP>=140/90: Repeat blood pressure: 150/74 Patient reported blood pressure Systolic BP 120 Diastolic BP 60 The patient's blood pressure is usually adequately controlled. No medication changes are indicated at this time. PAVE Foot Check: A complete foot check was completed at this encounter. VISUAL INSPECTION: Includes inspection for skin breaks, deformity, erythema, trauma, pallor on elevation, dependent rubor, nail deformities, extensive callus and pitting edema. Visual exam results: Normal PEDAL PULSES: Includes palpation of dorsalis and posterior tibial pulses and signs/symptoms of vascular compromise like pain, pallor, parasthesia or paralysis. Present (even if diminished) SENSORY CHECK: Includes 10 gram Monofilament (Dutch John-Javy) test of sensation. Intact (Greater than or equal to 80% of sites checked) Abnormal (Less than 80% of sites checked): Intact LOW-RISK: LOW RISK INFORMATION PROVIDED: 1. Advised patient not to walk barefoot. 2. Explained the importance of daily foot checks for changes. 3. Stressed the importance of daily foot hygiene, including bathing and complete drying. /josue/ SAHRA EVANS NP NURSE PRACTITIONER Signed: 08/09/2024 14:31 SAHRA EVANS
--- OUTSIDE RECORDS SUMMARY | 2024-12-02 09:22 | XMS_ITS | Continuity of Care Document ---
Author Organization [facility] Address [address] [place] [address] Phone [phone] Social History Type Date Description Comments Sex Unknown Medical Devices Description No Information Available Encounters Description No Information Available Assessments Description No Information Available Plan of Treatment No Information Available Functional Status Description No Information Available Mental Status Description No Information Available Referrals Description No Information Available
--- OUTSIDE RECORDS SUMMARY | 2024-12-02 09:22 | XMS_ITS | Data Portability ---
Author Organization [facility] [address] Address [address] [place] [address] Assessment Encounter Date Assessment Date Assessment LastModified by Organization Details LastModified Time 08/29/2023 08/29/2023 Patient was evaluated by the Physician Mold Capper using AV technology. This type of exam does not replace a need for an in-person evaluation if symptoms worsen or do not improve after 24-48 hours. [email or web address] Not available 08/29/2023 15:04:59 Plan of Treatment Reminders Order Date Submit Date Provider Last Modified By Organization Details Last Modified Time Details Appointments None recorded. Lab None recorded. Referral None recorded. Procedures None recorded. Surgeries None recorded. Imaging None recorded. Medication Orders clindamycin HCl 300 mg capsule 2023 024 [email or web address] [id number], [address], [place], [id number], 4 15:13:46 Patient TargetsNo targets recorded. Patient InstructionsNo instructions recorded. Reason for Referral None Reported. Problems Name Problem SNOMED Code Status Onset Date Resolution Date Notes Provider Name and Address Organization Details Recorded Time Hypertensive disorder 15587504 Active 2023 XIOMARA Martinez [address] [place], [address], [place] - [facility] 4 15:01:13 Hyperlipidemia 22101145 Active 2023 XIOMARA Martinez [address] [place], [address], [place] - [facility] 4 15:01:26 Type 2 diabetes mellitus 20451915 Active 2023 XIOMARA Martinez [facility] [place], [address], [facility] 4 15:01:37 Problem Notes None recorded. Procedures Surgical History Date Name Laterality Status Provider Name and Address Organization Details Recorded Time 4 Virtual Visit completed [facility]OM[facility] [place], [address], [facility] 08/29/2023 15:13:45 Imaging Results None recorded. Procedure Notes None recorded. Medical Equipment None Reported. Allergies Allergen ID Allergen Name Allergen Category Reaction Reaction Severity Criticality Documentation Date Start Date Code Code System Note Provider Name and Address Organization Details Recorded Time 965793 Product containin g penicilli n (product) medicatio n Not available Not available Not available 08/29/2023 19785 8001 SNOMED XIOMARA Martinez [facility] [place], [address], [facility] 4 14:59:27 Medications Name Sig Start Date Stop Date Status Note LastModified by Organization Details LastModified Time clindamycin HCl 300 mg capsule Take 1 capsule every 8 hours by oral route for 5 days. active Not Available Not Available Not Available atorvastatin 10 mg tablet TAKE 1 TABLET BY MOUTH DAILY active Not Available Not Available Not Available oxycodone-ac etaminophen 5 mg-325 mg tablet TAKE 1 TABLET BY MOUTH EVERY 6 HOURS NEEDED FOR PAIN active Not Available Not Available No t Available methocarbamo l 750 mg tablet TAKE 1 TABLET BY MOUTH THREE TIMES DAILY NEEDED FOR SPASM active Not Available Not Available No t Available doxycycline monohydrate 100 mg capsule TAKE 1 CAPSULE BY MOUTH TWICE DAILY FOR 7 DAYS active Not Available Not Available No t Available omeprazole 20 mg capsule,petra yed release TAKE 1 CAPSULE BY MOUTH DAILY active Not Available Not Available Not Available montelukast 10 mg tablet TAKE 1 TABLET BY MOUTH DAILY active Not Available Not Available Not Available codeine 10 mg-guaifenes in 100 mg/5 mL oral liquid TAKE 5 ML BY MOUTH EVERY 6 HOURS FOR 7 DAYS NEEDED FOR COUGH AND CONGESTION active Not Available Not Available N ot Available ketoconazole 2 % topical cream APPLY SPARINGLY TOPICALLY TO THE AFFECTED AREA EVERY DAY FOR 2 WEEKS active Not Available Not Available No t Available fluticasone propionate 50 mcg/actuatio n nasal spray,suspen eliezer SHAKE LIQUID AND USE 1 SPRAY IN EACH NOSTRIL TWICE DAILY NEEDED FOR CONGESTION active Not Available Not Available N ot Available lisinopril 2.5 mg tablet TAKE 1 TABLET BY MOUTH DAILY active Not Available Not Available Not Available doxycycline hyclate 100 mg tablet TAKE 1 TABLET BY MOUTH TWICE DAILY FOR 7 DAYS active Not Available Not Available No t Available oxycodone 5 mg tablet TAKE 1 TABLET BY MOUTH EVERY 4 TO 6 HOURS NEEDED FOR PAIN active Not Available Not Available No t Available sildenafil (pulmonary hypertension ) 20 mg tablet TAKE ONE TO FIVE TABLETS BY MOUTH DAILY NEEDED FOR SEXUAL ACTIVITY DIRECTED active Not Available Not Available No t Available sodium fluoride 1.1 % dental paste active Not Available Not Available Not Available Vitals None Recorded Social History None recorded. Functional Status None recorded. Mental Status None recorded. Family History Nothing Reported. Medical History No medical history recorded. Immunizations Vaccine Type Date Status Note Provider Nam e and Address Organization Details Recorded Time Influenza, MDCK, quadrivalent, PF 9 completed [place], [address], [place] - [facility] 08/29/2023 14:57:55 zoster recombinant 0 completed [place], [address], [place] - [facility] 08/29/2023 14:57:55 zoster recombinant 0 completed XIOMARA [place], [address], [place] - [facility] 08/29/2023 14:57:55 Influenza, high-dose, quadrivalent, PF 2 completed [place], [address], [place] - [facility] 08/29/2023 14:57:55 Influenza, high-dose, quadrivalent, PF 0 completed Maria Barrow XIOMARA Garcia [address], [place], [address], [place] - [facility] 08/29/2023 14:57:55 Influenza, adjuvanted, quadrivalent, PF 1 completed Maria Barrow PA [address], [place], [address], [place] - [facility] 08/29/2023 14:57:55 Influenza, adjuvanted, quadrivalent, PF 3 completed Maria Barrow PA [address], [place], [address], [place] - [facility] 08/29/2023 14:57:55 COVID-19, mRNA, LNP-S, PF, 30 mcg/0.3 mL dose 1 completed XIOMARA Martinez [address], [place], [address], [place] - [facility] 08/29/2023 14:57:55 COVID-19, mRNA, LNP-S, PF, 30 mcg/0.3 mL dose 1 completed Maria Barrow XIOMARA Garcia [address], [place], [address], [place] - [facility] 08/29/2023 14:57:55 COVID-19, mRNA, LNP-S, PF, 30 mcg/0.3 mL dose 1 completed Maria Barrow XIOMARA Garcia [address], [place], [address], [place] - [facility] 08/29/2023 14:57:55 COVID-19, mRNA, LNP-S, bivalent, PF, 30 mcg/0.3 mL dose 2 completed Maria Barrow PA [address], [place], [address], [place] - [facility] 08/29/2023 14:57:55 RSV, bivalent, protein subunit RSVpreF, diluent reconstituted, 0.5 mL, PF 3 completed XIOMARA Martinez [address], [place], [address], [place] - [facility] 08/29/2023 14:57:55 pneumococcal polysaccharide PPV23 2 completed Maria Barrow PA [address], [place], [address], [place] - [facility] 08/29/2023 14:57:55 Tdap 4 completed Maria Barrow PA [address], [place], [address], [place] - [facility] 08/29/2023 14:57:55 Pneumococcal conjugate PCV 13 5 completed XIOMARA Martinez [address], [place], [address], [place] - [facility] 08/29/2023 14:57:55 Pneumococcal conjugate PCV 13 0 completed XIOMARA Martinez [address], [place], [address], [place] - [facility] 08/29/2023 14:57:55 Influenza, split virus, trivalent, preservative 4 completed Maria Barrow PA [address], [place], [address], [place] - [facility] 08/29/2023 14:57:55 Influenza, split virus, trivalent, preservative 3 completed Maria Barrow PA [address], [place], [address], [place] - [facility] 08/29/2023 14:57:55 Influenza, split virus, trivalent, preservative 2 completed XIOMARA Martinez [address], [place], [address], [place] - [facility] 08/29/2023 14:57:55 Influenza, split virus, trivalent, PF 5 completed XIOMARA Martinez [address] [place], [address], [place] - [facility] 08/29/2023 14:57:55 Influenza, split virus, trivalent, PF 6 completed XIOMARA Martinez [address] [place], [address], [place] - [facility] 08/29/2023 14:57:55 Influenza, split virus, quadrivalent, PF 8 completed XIOMARA Martinez [address] [place], [address], [place] - [facility] 08/29/2023 14:57:55 Past Encounters Encounter ID Performer Location Encounter Start Date Encounter Closed Date Diagnosis/Indication Diagnosis SNOMED-CT Code Diagnosis ICD10 Code Diagnosis Note [id number] 2099[facility] _[address] [address] 10/22/2019 13:30:42 10/22/2019 14:11:[id number] [place] [address] _[address] [address] 09/25/2018 09:24:34 09/25/2018 10:08:[id number] [place] [address] [address] [address] 04/10/2017 09:35:42 04/10/2017 10:05:44 [id number] XIOMARA Martinez [address] [facility] [address] [place] [address] 08/29/2023 14:02:49 09/02/2023 08:16:54 Left without being seen [id number] 9102 Z53.21 Duplicate encounter [id number] XIOMARA Martinez [address] [place] [address] 08/29/2023 14:51:23 08/29/2023 15:40:22 Acute bilateral otitis media [id number] H66.93 You have been diagnosed with a middle ear infection. You were prescribed antibiotic s to help clear that infection. Recommenda tions1. Use the medication s prescribed .2. Decongesta nts if tolerated, ibuprofen and acetaminop hen as needed3. Recommend recheck if fever develops or no improvemen t in 5-7 days.4. Have your ear rechecked in in 2 weeks with your primary provider to verify infection has resolved.5 . Use a cool mist humidifier in the room that you sleep to add moisture to the air, which should soothe the airways and help loosen any mucus that may be present. If you develop any of the following Symptoms I would be seen again - I would recommend the ER1. Fever > 101.02. Stiff Neck3. Pain in the skull behind the Ear.4. Worsening Pain5. Bleeding from the Ear6. Severe Sore Throat.7. Severe Headache Antibiotic s typically take 4-5 days to start working so do the above to help with your symptoms. Probiotics are important while taking antibiotic s - I recommend Florastor Make sure you finish the full course of the antibiotic s - if you don't this can lead to antibiotic resistance . Thank you for using [facility] today - and don't hesitate to contact our office if you have any concerns or questions. Health Concerns Section Related Observation LastModified by Organization Detai ls LastModified Time None Recorded Concern Status LastModified by Organization Details LastModified Time None Recorded Advance Directives Directive None Recorded Payers Insurance Date Sequence Insurance Name Policy Number Policy Haider Covered Member ID Haider Member ID Guarantor Name 09/04/2023 1 [place] [employer] Dain Triston Titi [id number] Dain [place] 09/04/2023 2 [place] [employer] [id number] Dain Walls Jr [id number] Dain Walls Notes Date Note Type Note Provider Name and Address Organization Details Recorded Time 4 text/html Ear problem UCReported bypatient.source of patient informationInformation obtained from patient; Patient arrived at Urgent Care ambulatory Location:left Quality:pain;decreased hearing Severity:moderate Duration:started ; 5 days Context:no sick contacts; no recent swimming/water in ear; no recent air travel Modifying Factors:does not hurt to lie on, or pull on ear; does not hurt to chew Associated Symptoms:nose/sinus problems Verified the Patient's Name and at the start of visit.Audio/Visual Technology was used and functioning properly.Patient (and Guardian) - verbally understands limitations of a medical exam using A/V Technology - understands alternative treatment would be to visit an on-site medical facility.The patient did confirm they are physically located in the state that I hold a valid medical license. XIOMARA Martinez [address] [place] [address] [place], [address], [place] - [facility] 08/29/2023 15:13:55
--- OUTSIDE RECORDS SUMMARY | 2024-12-02 09:22 | XMS_ITS | Encounter Summary ---
Author Name [facility] [place] Organization [facility] [place] Address [address] [place] [address] Care Team Providers Care Seasoning Sprayer Name Role Phone SAHRA EVANS Primary Care [...] Name Patient's Relationship to Policy Ha[place] BCBS [place] FEP PREFERRED PROVIDER ORGANIZAT ION (PPO) BASIC SELF PLUS ONE Jul 14, 2015 [id number] [phone] NATENAREN SEGOVIA JR PATIENT BS AR FEP PREFERRED PROVIDER ORGANIZAT ION (PPO) BASIC FAMIL Y Jul 16, 2008 [id number] NATENAREN SEGOVIA JR PATIENT MEDICARE (WNR) MEDICARE (M) PART A Jan 12, 2020 PART A [id number] [phone] Triston ADAM PATIENT MEDICARE (WNR) MEDICARE (M) PART B Jan 12, 2020 PART B [id number] [place] ADAM PATIENT Selected Encounter This section includes the information on record at [place] for the Encounter. Date/Time Encounter Type Encounter Description Reason Provider Source Mar 24, 2024 09:30 AM MTMS BY PHARM ADDL 15 MIN CLINICAL PHARMACY ICD-10-CM E11.9 Type 2 diabetes mellitus without complications NIKKI JOHNSON [facility] Encounter Template Text not used by [place] Assessments - Encounter Diagnoses This section includes the primary and secondary diagnoses documented for the Encounter. Date/Time Primary/Secondary Diagnosis Diagnosis Name Provider Source Mar 25, 2024 02:44 PM PRIMARY Type 2 diabetes mellitus without complications KULDIP JOHNSON [place] Plan of Treatment: Future Appointments (+ 6 months) and Future Tests (+/- 45 days) The Plan of Treatment section includes future care activities for the patient from all [place] [facility]. This section includes future appointments and future orders which are active, pending or scheduled. Future Appointments This section includes appointments that were scheduled to occur 6 months from the date of the Encounter, up to a maximum of 20 appointments. The data comes from all [place] treatment facilities. Appointment Date/Time Appointment Type Appointme nt Facility Name Jul 29, 2024 03:00 PM AMBULATORY - MEDICINE [facility] Aug 05, 2024 10:00 AM AMBULATORY - MEDICINE [facility] Lab Results: +/- 30 days of the encounter This section includes the Chemistry and Hematology Lab Results on record with [place] for the patient. Radiology Reports and Pathology Reports are provided separately, in subsequent sections. Lab Results This section contains the Chemistry/Hematology Results that were resulted 30 days before or 30 daysafter the date of the Encounter. Date/Time Source Result Type Result - Unit Interpretation Reference Range Specimen Type Comment Mar 18, 2024 08:53 AM [facility] BASIC METABOLIC PANEL (fasting) SERUM Specime n Type: SERUM No comment entered. Ordering Provider: SAHRA EVANS Report Released Date/Time: Mar 18, 2024 08:48 AM Reporting Lab: [facility] [address] [address] Performing Lab: [facility] [address] [address] UREA NITROGEN 15 mg/dL 7-25 GLUCOSE 138 mg/dL H 65-100 SODIUM 139 mmol/L 135-145 POTASSIUM 4.3 mmol/L 3.5-5.0 CHLORIDE 103 mmol/L 100-110 CO2 27 meq/L 20-30 CREATININE, Serum 0.80 mg/dL 0.50-1.40 eGFR(CKD-EPI 2020) >90 mL/min >60 Mar 18, 2024 08:53 AM [facility] LIPID PANEL FASTING SERUM Specimen Type: SERU M No comment entered. Ordering Provider: SAHRA EVANS Report Released Date/Time: Mar 18, 2024 08:48 AM Reporting Lab: [address] [address] Performing Lab: [address] [address] CHOLESTEROL 154 mg/dL TRIGLYCERIDE 102 mg/dL 0-150 LDL calculated 94 mg/dL 0-129 CHOL/HDL 3.9 HDL CHOLESTEROL 40 mg/dL 40-60 Mar 18, 2024 08:53 AM [facility] LIVER FUNCTION SERUM Specimen Type: SERUM No comment entered. Ordering Provider: SAHRA EVANS Report Released Date/Time: Mar 18, 2024 08:48 AM Reporting Lab: [address] [address] Performing Lab: [address] [address] PROTEIN,TOTAL 7.2 g/dL 6.0-8.3 ALBUMIN 4.3 g/dL 3.5-5.0 ALKALINE PHOSPHATASE 61 U/L 40-150 AST 13 U/L 5-34 ALT 13 U/L BILIRUBIN, TOTAL 1.1 mg/dL 0.2-1.2 Mar 18, 2024 08:53 AM [facility] HEMOGLOBIN A1C PANEL BLOOD Specimen Type: BLO OD Comment: Values obtained from A1C measurements can vary. For atypical A1C assays, a reported value of 7.0 could actually be between 6.72 and 7.28 if measured by a reference method. A reported value of 9.0 could actually be between 8.73 and 9.27. Ref: http://www.ngsp.org/CAPdata.asp Ordering Provider: SAHRA EVANS Report Released Date/Time: Mar 18, 2024 08:48 AM Reporting Lab: [place] [facility] [place] [facility] [address] [facility] [address] Performing Lab: [place] [facility] [place] [facility] [address] [facility] [address] HEMOGLOBIN A1C 6.9 H 4.0-5.6 Mar 18, 2024 08:53 AM [facility] TSH SERUM Specimen Type: SERUM No comment entered. Ordering Provider: SAHRA EVANS Report Released Date/Time: Mar 18, 2024 08:48 AM Reporting Lab: [facility] [place] [facility] [address] [facility] [address] Performing Lab: [facility] [place] [address] [address] TSH 0.71 u[IU]/mL 0.35-5.00 Mar 18, 2024 08:53 AM [facility] CBC AND DIFF (AUTO) BLOOD Specimen Type: BLOO D No comment entered. Ordering Provider: SAHRA EVANS Report Released Date/Time: Mar 18, 2024 08:48 AM Reporting Lab: [facility] [place] [facility] [address] [facility] [address] Performing Lab: [facility] [place] [address] [address] WBC 6.38 10*3/uL 4.50-11.00 RBC 5.54 10*6/uL 4.23-5.66 HGB 15.7 g/dL 12.8-17 HCT 46.9 39.2-50.4 MCV 84.7 fL 82-99 MCHC 33.5 g/dL 30.8-35.1 PLT 258 10*3/uL 140-360 RDW-CV 14.0 12.0-16.0 MONO, ABS 0.56 10*3/uL 0.30-1.10 MCH 28.3 pg 26.2-32.6 NEUT % 62.2 43.7-75.8 LYMPH % 26.5 14.0-42.3 MONO % 8.8 5.1-13.7 EOS % 1.9 0.4-6.8 BASO % 0.3 0.1-2.0 NEUT, ABS 3.97 10*3/uL 2.20-7.60 LYMPH, ABS 1.69 10*3/uL 1.00-3.20 EOS, ABS 0.12 10*3/uL 0.03-0.44 BASO, ABS 0.02 10*3/uL 0.01-0.13 IMMATURE GRAN % 0.3 0.0-0.7 IMMATURE GRAN, ABS 0.02 10*3/uL 0.00-0.0 6 NRBC % 0.0 0.0-0.0 NRBC, ABS 0.00 10*3/uL 0.00-0.00 Mar 18, 2024 08:53 AM [facility] URINALYSIS URINE Specimen Type: URINE Comment: If Glucose = >500 and Ketones are positive, please alert the Physician. Ordering Provider: SAHRA EVANS Report Released Date/Time: Mar 18, 2024 08:48 AM Reporting Lab: [address] [address] Performing Lab: [address] [address] UA COLOR Light-Yellow Yellow UA APPEARANCE Clear Clear UA GLUCOSE >1000 mg/dL Negative UA KETONES NEGATIVE mg/dL Negative UA BLOOD NEGATIVE mg/dL Negative UA PROTEIN NEGATIVE mg/dL Negative UA NITRITE NEGATIVE mg/dL Negative UA BILIRUBIN NEGATIVE mg/dL Negative UA SPECIFIC GRAVITY 1.038 H 1.016-1.022 UA pH 5.5 5.0-9.0 UA UROBILINOGEN Normal mg/dL <2.0 UA LEUKOCYTE NEGATIVE Negative Mar 18, 2024 08:53 AM [facility] MICROALBUMIN CREATININE RATIO PANEL URINE Spe cimen Type: URINE No comment entered. Ordering Provider: SAHRA EVANS Report Released Date/Time: Mar 18, 2024 08:48 AM Reporting Lab: [facility] [address] [facility] [address] Performing Lab: [address] [address] MICROALBUMIN/CREATININE RATIO 16.6 mg/g 0-29.9 MICROALBUMIN,QUANTITATIVE 1.4 mg/dL RR U NAVAIL CREATININE URINE 84.31 mg/dL Social History: Smoking Status (Most current) and Tobacco Use (All prior to encounter date) This section includes the most current, and the historical, smoking and tobacco- related health factors from the [place] facility where the Encounter took place. Current Smoking Status This section includes the most current smoking, or tobacco-related health factor, from the [place] facility where the Encounter took place. Date/Time Current Smoking Status Comment Asher maya Oct 20, 2023 10:30 AM [place]-TOBACCO NEVER USED [place] Tobacco Use History This section includes a history of the smoking, or tobacco-related health factors, that were collected on or before the date of the Encounter. The data comes from the [place] facility where the Encounter took place. Date/Time Smoking Status/Tobacco Use Comment Robert ackamran Oct 02, 2022 09:00 AM [place]-TOBACCO NEVER USED [place] Oct 01, 2021 02:00 PM [facility]-TOBACCO NEVER USED [place] Encounter Notes: All associated encounter notes This section contains the clinical notes associated to the Encounter. Date/Time Encounter Note(s) Provider Source Mar 24, 2024 09:49 AM PHARMACY OUTPATIEN T NOTE: LOCAL TITLE: PHARMACY CLINIC NOTE STANDARD TITLE: PHARMACY OUTPATIENT NOTE DATE OF NOTE: MAR 24, 2024@09:49 ENTRY DATE: MAR 24, 2024@09:50:01 AUTHOR: JEET JOHNSON COSIGNER: URGENCY: STATUS: COMPLETED Patient Name: NAREN ADAM JR was seen via [facility] for follow-up for diabetes management treatment. : Jan Age: 69 Sex: MALE Race: WHITE Subjective: Pt is here for shireen pro upload. Pt states he is doing well. Per prev: Pt is here for shireen pro placement. Pt states his back has been acting up - he has arthritis of lower back. He has not been able to exercise much. Per prev: PT is doing well. He reports to continue w/ lifestyle changes. He is going to the gym more frequently than before. He does report problems w/ his glucose meter. He is requesting a new one. He would like to obtain a sensor from the [place] - pt was informed that ufortunatley he is not meeting the criteria. Per prev: Pt continues to recover from knee surgery. Pt admits to dietary indescretions over the last month or so. He states his BG have been elevated more than usual. Per prev: Pt had knee surgery - cleaning of the knee, etc. 2 weeks ago . Pt is walking without a cane and states he is doing very well. Pt's dm meds : empagliflozin and semaglutide have been both held for the surgery and resumed shortly thereafter. Pt offers no complains. He continues on semaglutide with good results. Per prev: Pt started ozempic on 11/2022. Pt is tolerating the medication very well. 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 Pt is very excited to see his clothes fitting better and having a satiety affect with ozempic. Per prev: Pt came in for a f/up since last visit and shireen pro upload. Pt had question on neuropathy and its treatment as he has been experiencing symptoms of neuropathy. Will forward those questions for PCP. Pt presents today for shireen pro uplaod and start of ozempic. Per prev: Pt presents for a f/up. Pt states he is discouraged with lack of discipline with his diet. He states he Per prev: Pt was last seen on 07/17/22. Pt is not happy with the A1C of 7.3%. He admits to some dietary indescretions lately. He is in good spirits. 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 Per prev. Pt reports doing very well. Pt lost 6 lbs and as a result he has eliminated the cpap machine. He has been following a person on social media who is explaining how each food impacts the BG levels and he reports to be learning from that. Target Goals: A1C: 7%; FB-130 mg/dL; 2HRS PP <180mg/dL. Allergies: PENICILLIN PERTINENT INFORMATION: Active problems - Computerized Problem List is the source for the followin. Outside Providers 2. Gastroesophageal reflux disease 3. Erectile dysfunction 4. Benign essential hypertension 5. Sleep apnea 6. Type 2 diabetes mellitus Diabetes Medication Regimen: - empagliflozin 25 mg daily - eGFR >90 ml/min on 09/06 - Metformin SA 1000 mg daily - semaglutide 0.5 mg weekly (Fridays) - started on 11/28/22 Previous DM Medications: - alogliptin- stopped when semaglutide started Adherence: Oral meds: denies missed doses Insulin: denies missed doses Labs: HEMOGLOBIN A1C TREND Collection DT Spec HGBA1c 03/18/2024 08:53 BLOOD 6.9 H 11/17/2023 08:13 BLOOD 6.8 H 08/29/2023 09:06 BLOOD 7.6 H 05/05/2023 09:12 BLOOD 6.6 H 01/08/2023 08:13 BLOOD 6.6 H CBC TREND Collection DT Spec WBC RBC HGB HCT MCV MCH PLT 03/18/2024 08:53 BLOOD 6.38 5.54 15.7 46.9 84.7 28.3 258 11/17/2023 08:13 BLOOD 7.85 5.60 16.0 48.0 85.7 28.6 299 08/29/2023 09:06 BLOOD 7.68 5.55 15.6 47.1 84.9 28.1 245 CHEM 7 TREND LAB CUMULATIVE SELECTED Collection DT Spec GLUCOSE BUN CREATIN Sodium K+/Pot CL CO2 03/18/2024 08:53 SERUM 138 H 15 0.80 139 4.3 103 27 11/17/2023 08:13 SERUM 171 H 19 0.85 140 4.2 103 27 08/29/2023 09:06 SERUM 151 H 12 0.81 139 4.2 101 27 05/05/2023 09:12 SERUM 120 H 12 0.81 141 4.5 102 26 01/08/2023 08:13 SERUM 117 H 14 0.80 139 4.4 103 24 LAB CUMULATIVE SELECTED 2 No selection items chosen for this component. CHEM 7 Results Collection DT Spec Sodium K+/Pot CL CO2 GLUCOSE BUN 03/18/2024 08:53 SERUM 139 4.3 103 27 138 H 15 11/17/2023 08:13 SERUM 140 4.2 103 27 171 H 19 08/29/2023 09:06 SERUM 139 4.2 101 27 151 H 12 05/05/2023 09:12 SERUM 141 4.5 102 26 120 H 12 01/08/2023 08:13 SERUM 139 4.4 103 24 117 H 14 09/30/2022 07:43 SERUM 138 4.5 101 28 160 H 14 02/18/2022 07:51 SERUM 138 4.7 99 L 28 152 H 15 LIPID PANEL TREND Collection DT Spec CHOL HDL CHO/HDL LDL-c TRIG 03/18/2024 08:53 SERUM 154 40 3.9 94 102 08/29/2023 09:06 SERUM 164 44 3.7 93 134 09/30/2022 07:43 SERUM 187 56 3.3 101 152 H THYROID PANEL Collection DT Specimen Test Name Result Units Ref Range 03/18/2024 08:53 SERUM TSH 0.71 uIU/mL 0.35 - 5.00 ---- B12 & FOLATE ---- SERUM Sudhir Nov 08 Reference 2022 2022 08:13 08:39 Units Ranges B12 976 H 239 pg/mL 200 - 900 FOLATE ng/mL Ref: >=5.2 FOLAT ng/mL 3 - 20 Comments: b c SrCr (last 6 weeks): CREATININE-EGFR 03/18/24 08:53 0.80 CRCL IBW: CrCl(est): 95.7 mL/min (Creat:0.80 03/18/24) CRCL ACT: 86.87 mL/min CRCL ADJ: 95.7 mL/min (03/18/24) LFT'S: WNL Vitals: Weight (BMI): 193.8 lb [87.91 kg] (10/20/2023 10:45) Height: 72 in [182.9 cm] (10/20/2023 10:45) BMI: 26.3 Active and Recently Outpatient Medications (including Supplies): Active Outpatient Medications Status Active Outpatient Medications (including Supplies): EMPAGLIFLOZIN 25MG TAB TAKE ONE TABLET BY MOUTH ONCE DAILY ACTIVE FOR TYPE 2 DIABETES MELLITUS METFORMIN HCL 500MG 24HR SA TAB TAKE TWO TABLETS BY MOUTH ACTIVE ONCE DAILY SEMAGLUTIDE 0.25MG/0.375ML INJ PEN 3ML INJECT 0.5MG ACTIVE SUBCUTANEOUSLY ONCE A WEEK Non-VA ATORVASTATIN CALCIUM 20MG TAB 10MG BY MOUTH ONCE ACTIVE DAILY Non-VA KETOCONAZOLE 2% CREAM THIN LAYER TOPICALLY ACTIVE NEEDED Non-VA LISINOPRIL 2.5MG TAB 2.5MG BY MOUTH ONCE DAILY ACTIVE Non-VA MONTELUKAST NA 10MG TAB 10MG BY MOUTH ONCE DAILY ACTIVE Non-VA OMEPRAZOLE 20MG EC CAP 20MG BY MOUTH ONCE DAILY ACTIVE Non-VA SILDENAFIL TAB 20 MG BY MOUTH NEEDED ACTIVE Non-VA SODIUM FLUORIDE 1.1% CREAM,ORAL DIRECTED TO ACTIVE TEETH TWICE DAILY MEDICATION RECONCILIATION:DONE BLOOD GLUCOSE MONITORING BG ON 04/10/22: BLOOD GLUCOSE MONITORING INFORMATION OBTAINED FROM SHIREEN PRO SENSOR 15 DAY AVERAGE = 146 MG/DL 15 DAY TIME IN TARGET very high >250 0% high 181-250 13% target range 70-180 87% low 54-69 0% very low <54 0% TOTAL 15 DAY LOW GLUCOSE EVENTS = 0 07/17/22 Fasting BG av mg/dl ( n=2; range 133-189 mg/dl) Before lunch av mg/dl (n=3; range 110-139mg/dl) Before supper avmg/dl (n=2; range 96-99 mg/dl) Bedtime: 101 mg/dl; (n=1) 10/02/22: pt did not bring the meter to the visit 11/08/22: pt did not bring meter 11/28/22: Shireen pro upload: 12 day av mg/dl 4% VERY HIGH 19% HIGH 77% TARGET RANGE 0% LOW 0% VERY LOW Low glucose 01/23/23 Fasting BG av mg/dl ( n=5; range 117-137 mg/dl) Before lunch av mg/dl (n=5; range 113-155mg/dl) Before supper avmg/dl (n=1) Bedtime: 118 mg/dl; (n=1) 05/21/23 - pt did not bring the meter to the visit 09/03/23: pt did not bring the BG readings ; states his Fasting BG in 140-150's. 10/08/23: FAsting BG avmg/dl;n=8; range: 121-157 mg/dl; Before lunch avmg/dl; n=10; range: 122-223 mg/dl Before dinner av mg/dl;n =4; range: 128-134 mg/dl Bedtime avmg/dl; n=2; range: 145-146 mg/dl 11/07/23 - pt did not bring the BG meter to the visit 11/21/23 Freestyle shireen pro 12 day av mg/dl 2% VERY HIGH 14% HIGH 84% TARGET RANGE 0% LOW 0% VERY LOW A SEPERATE UPLOAD WILL BE LOCATED UNDER A DIFFERENT NOTE IN CPRS Date: 03/24/24 Pt did not bring the BG meter to the visit. prior to meals: 130-140 mg/dl NUTRITION: Diet Patterns: patient eats on avg. 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 HYPOGLYCEMIC Events: 0 in the last 2 weeks Hypoglycemia recognition & treatment reviewed: Yes EtOH/Illicit drugs: Alcohol: denies Tobacco: denies Other: - Denies personal or fhx thyroid cancer or MENS2 - Denies hx pancreatitis Personal Goals: - Get BG under control - Lose weight Goal weight: 180 lbs Baseline weight: 214.4 lbs (11/2022) 198.6 lbs (01/2023) 190.0 lbs (05/2023) *home weight 193.0 lbs (08/2023) 183 lbs (09/2023) *home weight 185 lbs (11/2023) 195 lbs (03/2024) --- net weight loss: 19 lbs Goal weight 180 lbs HYPOGLYCEMIC Events: 0 in the last 2 weeks Hypoglycemia recognition & treatment reviewed: Yes EtOH/Illicit drugs: Alcohol: denies Tobacco: denies Other: - Denies personal or fhx thyroid cancer or MENS2 - Denies hx pancreatitis Personal Goals: - Get BG under control - Lose weight ASSESSMENT/PLAN: Reviewed the most recent labs - A1C lowered to 6.8%. Congratulated pt on that achievement. Reviewed the upload time in target at 84% which is very good. Pt did not bring the journal to the visit. Recommend to c/t on current regimen w/ no changes. f/up in March. Date: 03/25/24 Reviewed the BG reported by the pt and recent A1C. A1C at 6.9% . Considering pt continues to struggle w/ weight loss recommend to increase the dose of ozempic. Pt in agreement. Reviewed the potential ADR profile of ozempic higher dose. Reviewed nutrition and physical activity. f/up in 2 months DIABETES A1c is below goal of <7% - Medication management Diabetes - c/t empagliflozin 25 mg daily - eGFR >90 ml/min on 12/04 and 03/18/24 - c/t Metformin SA 1000 mg daily - INCREASE semaglutide 1 mg weekly (Fridays) - started on 11/28/22 - [facility]ed [facility] - Monitor for s/sx hypoglycemia and contact clinic if BG consistently <70mg/dL - Healthy dietary and lifestyle modifications encouraged - - Repeat A1c: Nov, 2023 HTN: recent BP high 09/2021; lisinopril ANGY-I/ARB - defer to PCP *Pt gets anxious prior to BP when in medical office* Pt checks BP at home - all readings wnl 127/80's. ASCVD: atorvastatin, Microalb: mALB/Cr: 16.1 mg/G (02/2022) History of Preventive Care: Most recent visit to video games mechanic: never seen ; will place consult Most recent visit to optometry: non-[facility] ; no changes in eye health no NPDR or DE per pt's report. Clinic's Next Scheduled Follow-up:DM PHARMACY 05/27/24 No barriers; Patient understands and agrees to current treatment plan. If he has any questions, concerns, or changes in current health status he will call or come [facility] to the [facility]. 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
--- OUTSIDE RECORDS SUMMARY | 2024-12-02 09:22 | XMS_ITS | Clinical Summary ---
Author Organization [facility] Address [address] [place] [address] Care Team Providers Care Process Control Board Operator Name Role Phone Natalio Clancy MD Primary Care Provider Allergies Active Allergy Reactions Criticality Noted Date Comments Penicillins 06/12/2018 Medications Medication Sig Dispensed Refills Start Date End Date Status atorvastatin (LIPITOR) tablet 10 mg TK 1 T PO D 0 04/30/2018 Active JANUMET 50-500 MG per tablet 0 04/11/2018 Active canagliflozin (INVOKANA) tablet 100 mg Take by mouth. 0 Active JARDIANCE 10 MG tablet TK 1 T PO QD 0 09/08/2019 Active metFORMIN (GLUCOPHAGE) tablet 1000 mg Take 1,000 mg by mouth. 0 Active SITagliptin (JANUVIA) 25 MG tablet Take 25 mg by mouth. 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 Incomplete tear of left rotator cuff 06/12/2018 Family History Medical History Relation Name Comments Cancer Father Cancer Mother Diabetes Mother Cancer Sister Relation Name Status Comments Father Mother Sister Social History Tobacco Use Types Packs/Day Years Used Date Smoking Tobacco: Never Assessed Sex and Gender Information Value Date Recorded Sex Assigned at Not on file Gender Identity Not on file Sexual Orientation Not on file Job Start Date Occupation Industry Not on file Not on file Not on file Last Filed Vital Signs Vital Sign Reading Time Taken Comments Blood Pressure - - Pulse - - Temperature - - Respiratory Rate - - Oxygen Saturation - - Inhaled Oxygen Concentration - - Weight 93 kg (205 lb) 09/06/2022 11:20 AM EST Height 182.9 cm (6') 09/06/2022 11:20 AM EST Body Mass Index 27.8 09/06/2022 11:20 AM EST Plan of Treatment Health Maintenance Due Date Last Done Comments Hepatitis C Screening 1955 Depression Screening 1967 Preventative Health Evaluation 1973 DTap / Tdap / Td (1 - Tdap) 1974 Colon Cancer Screening (Colonoscopy) 01/27/2000 Fall Risk Assessment 01/27/2020 COVID-19 Vaccine (4 - season) 2024 05/18/2021, 10/25/2020, 10/04/2020 Influenza Vaccine (#1) 2024 2, 04/26/2021, 04/15/2018, Additional history exists Pneumococcal Vaccine (3 of 3 - PPSV23 or PCV20) 05/07/2025 05/07/2020, 05/03/2015, 05/23/2012 RSV Adult > 60+ Yrs or (1 - 1-dose 75+ series) 2030 Shingrix-Zoster Vaccine Completed 01/09/2020, 07/18 Hepatitis B Vaccines Aged Out No long er eligible based on patient's age to complete this topic RSV Ped < 20 months Aged Out No longe r eligible based on patient's age to complete this topic Care Teams Process Control Board Operator Relationship Specialty Start Date End Date Natalio Clancy MD [address] [place] [address] PCP - General Family Medicine 05/22/18
--- OUTSIDE RECORDS SUMMARY | 2024-12-02 09:22 | XMS_ITS | Encounter Summary ---
Author Name [facility] [facility] [place] [facility] [place] Address [address] [place] [address] Care Team Providers Care Protective Clothing Issuer Name Role Phone SAHRA EVANS Primary Care [...] Name Patient's Relationship to Policy [place] PREFERRED PROVIDER ORGANIZAT ION (PPO) BASIC SELF PLUS ONE Jul 14, 2015 [id number] [phone] NATENAREN SEGOVIA JR [place] PREFERRED PROVIDER ORGANIZAT ION (PPO) BASIC FAMIL Y Jul 16, 2008 112 [id number] NATENAREN SEGVOIA JR PATIENT MEDICARE (WNR) MEDICARE (M) PART A Jan 12, 2020 PART A [id number] [phone] Triston ADAM PATIENT MEDICARE (WNR) MEDICARE (M) PART B Jan 12, 2020 PART B [id number] [place] ADAM PATIENT Selected Encounter This section includes the information on record at [place] for the Encounter. Date/Time Encounter Type Encounter Description Reason Provider Source Aug 05, 2024 10:00 AM MTMS BY PHARM DEYANIRA 15 MIN CLINICAL PHARMACY ICD-10-CM E11.9 Type 2 diabetes mellitus without complications NIKKI JOHNSON [facility] Encounter Template Text not used by [facility] Assessments - Encounter Diagnoses This section includes the primary and secondary diagnoses documented for the Encounter. Date/Time Primary/Secondary Diagnosis Diagnosis Name Provider Source Aug 05, 2024 10:12 AM PRIMARY Type 2 diabetes mellitus without complications KULDIP JOHNSON [place] Plan of Treatment: Future Appointments (+ 6 months) and Future Tests (+/- 45 days) The Plan of Treatment section includes future care activities for the patient from all [place] treatmentfacilities. This section includes future appointments and future orders which are active, pending or scheduled. Future Appointments This section includes appointments that were scheduled to occur 6 months from the date of the Encounter, up to a maximum of 20 appointments. The data comes from all [place] treatment facilities. Appointment Date/Time Appointment Type Appointme nt Facility Name Dec 16, 2024 09:30 AM AMBULATORY - MEDICINE [facility] Lab Results: +/- 30 days of the encounter This section includes the Chemistry and Hematology Lab Results on record with [place] for the patient. Radiology Reports and Pathology Reports are provided separately, in subsequent sections. Lab Results This section contains the Chemistry/Hematology Results that were resulted 30 days before or 30 daysafter the date of the Encounter. Date/Time Source Result Type Result - Unit Interpretation Reference Range Specimen Type Comment Jul 26, 2024 10:25 AM [facility] HEMOGLOBIN A1C PANEL BLOOD Specimen Type: [...] Jul 26, 2024 09:59 AM Reporting Lab: [address] [address] Performing Lab: [address] [address] HEMOGLOBIN A1C 6.6 H 4.0-5.6 Jul 26, 2024 10:25 AM [facility] MICROALBUMIN CREATININE RATIO PANEL URINE Spe cimen Type: URINE No comment entered. Ordering Provider: JEET JOHNSON Report Released Date/Time: Jul 26, 2024 09:59 AM Reporting Lab: [facility] [address] [facility] [address] Performing Lab: [facility] [address] [facility] [address] MICROALBUMIN/CREATININE RATIO 7.2 mg/g 0 -29.9 MICROALBUMIN,QUANTITATIVE 0.6 mg/dL RR U NAVAIL CREATININE URINE 83.30 mg/dL Jul 26, 2024 10:25 AM [facility] BASIC METABOLIC PANEL (non-fasting) SERUM Spe cimen Type: SERUM No comment entered. Ordering Provider: JEET JOHNSON Report Released Date/Time: Jul 26, 2024 09:59 AM Reporting Lab: [address] [address] Performing Lab: [address] [address] UREA NITROGEN 16 mg/dL 7-25 GLUCOSE 110 mg/dL H 65-100 SODIUM 138 mmol/L 135-145 POTASSIUM 4.5 mmol/L 3.5-5.0 CHLORIDE 102 mmol/L 100-110 CO2 26 meq/L 20-30 CREATININE, Serum 0.79 mg/dL 0.50-1.40 eGFR(CKD-EPI 2020) >90 mL/min >60 Jul 26, 2024 10:25 AM [facility] CBC BLOOD Specimen Type: BLOOD No comment entered. Ordering Provider: JEET JOHNSON Report Released Date/Time: Jul 26, 2024 09:59 AM Reporting Lab: [facility] [address] [facility] [address] Performing Lab: [address] [address] WBC 7.05 10*3/uL 4.50-11.00 RBC 5.95 10*6/uL H 4.23-5.66 HGB 16.5 g/dL 12.8-17 HCT 49.7 39.2-50.4 MCV 83.5 fL 82-99 MCHC 33.2 g/dL 30.8-35.1 PLT 298 10*3/uL 140-360 RDW-CV 14.1 12.0-16.0 MCH 27.7 pg 26.2-32.6 Social History: Smoking Status (Most current) and Tobacco Use (All prior to encounter date) This section includes the most current, and the historical, smoking and tobacco- related health factors from the [place] facility where the Encounter took place. Current Smoking Status This section includes the most current smoking, or tobacco-related health factor, from the [place] facility where the Encounter took place. Date/Time Current Smoking Status Comment Facil ity Oct 20, 2023 10:30 AM [place]-TOBACCO NEVER USED [place] Tobacco Use History This section includes a history of the smoking, or tobacco-related health factors, that were collected on or before the date of the Encounter. The data comes from the [place] facility where the Encounter took place. Date/Time Smoking Status/Tobacco Use Comment F acility Oct 02, 2022 09:00 AM [place]-TOBACCO NEVER USED [place] Oct 01, 2021 02:00 PM [place]-TOBACCO NEVER USED [place] Encounter Notes: All associated encounter notes This section contains the clinical notes associated to the Encounter. Date/Time Encounter Note(s) Provider Source Aug 05, 2024 10:08 AM PHARMACY OUTPATIEN T NOTE: LOCAL TITLE: PHARMACY CLINIC NOTE STANDARD TITLE: PHARMACY OUTPATIENT NOTE DATE OF NOTE: AUG 05, 2024@10:08 ENTRY DATE: AUG 05, 2024@10:08:32 AUTHOR: JEET JOHNSON COSIGNER: URGENCY: STATUS: COMPLETED Patient Name: NAREN ADAM JR was seen via F for follow-up for diabetes management treatment. : Jan Age: 69 Sex: MALE Race: WHITE Subjective: Pt presents for a f/up., He is doing well. He lost weight based on the home scale. Per prev: Pt is here for shireen [...] like to obtain a sensor from the [place] - pt was informed that carlos eduardo he is not meeting the criteria. Per [...] mg daily - eGFR >90 ml/min on 07/2024 - Metformin SA 1000 mg daily - semaglutide 1 mg weekly (Fridays) - started on 11/28/22 ; incresaed dose to 1 mg on 03/2025 Previous DM Medications: - alogliptin- stopped when semaglutide started Adherence: Oral meds: denies missed doses Insulin: denies missed doses Labs: HEMOGLOBIN A1C TREND Collection DT Spec HGBA1c 07/26/2024 10:25 BLOOD 6.6 H 03/18/2024 08:53 BLOOD 6.9 H 11/17/2023 08:13 BLOOD 6.8 H 08/29/2023 09:06 BLOOD 7.6 H 05/05/2023 09:12 BLOOD 6.6 H CBC TREND Collection DT Spec WBC RBC HGB HCT MCV MCH PLT 07/26/2024 10:25 BLOOD 7.05 5.95 H 16.5 49.7 83.5 27.7 298 03/18/2024 08:53 BLOOD 6.38 5.54 15.7 46.9 84.7 28.3 258 11/17/2023 08:13 BLOOD 7.85 5.60 16.0 48.0 85.7 28.6 299 08/29/2023 09:06 BLOOD 7.68 5.55 15.6 47.1 84.9 28.1 245 CHEM 7 TREND LAB CUMULATIVE SELECTED Collection DT Spec GLUCOSE BUN CREATIN Sodium K+/Pot CL CO2 07/26/2024 10:26 SERUM 110 H 16 0.79 138 4.5 102 26 03/18/2024 08:53 SERUM 138 H 15 0.80 139 4.3 103 27 11/17/2023 08:13 SERUM 171 H 19 0.85 140 4.2 103 27 08/29/2023 09:06 SERUM 151 H 12 0.81 139 4.2 101 27 05/05/2023 09:12 SERUM 120 H 12 0.81 141 4.5 102 26 LAB CUMULATIVE SELECTED 2 No selection items chosen for this component. CHEM 7 Results Collection DT Spec Sodium K+/Pot CL CO2 GLUCOSE BUN 07/26/2024 10:26 SERUM 138 4.5 102 26 110 H 16 03/18/2024 08:53 SERUM 139 4.3 103 27 [...] SERUM TSH 0.71 uIU/mL 0.35 - 5.00 VITAMIN D 25-OH ---- B12 & FOLATE ---- SERUM Sudhir Nov 08 Reference 2022 2022 08:13 08:39 Units Ranges B12 976 H 239 pg/mL 200 - 900 FOLATE ng/mL Ref: >=5.2 FOLAT ng/mL 3 - 20 SrCr (last 6 weeks): CREATININE-EGFR 07/26/24 10:26 0.79 CRCL IBW: CrCl(est): 96.9 mL/min (Creat:0.79 07/26/24) CRCL ACT: 86.24 mL/min CRCL ADJ: 96.9 mL/min (07/26/24) Vitals: Weight (BMI): 192.4 lb [87.27 kg] (07/29/2024 15:18) Height: 72 in [182.9 cm] (10/20/2023 10:45) BMI: 26.1 Active and Recently Outpatient Medications (including Supplies): Active Outpatient Medications Status Active Outpatient Medications (including Supplies): EMPAGLIFLOZIN 25MG TAB TAKE ONE TABLET BY MOUTH ONCE DAILY ACTIVE Indication: FOR TYPE 2 DIABETES MELLITUS METFORMIN HCL 500MG 24HR SA TAB TAKE TWO TABLETS BY MOUTH ACTIVE ONCE DAILY Indication: FOR TYPE 2 DIABETES MELLITUS SEMAGLUTIDE 1MG/0.75ML INJ PEN 3ML INJECT 1MG ACTIVE SUBCUTANEOUSLY ONCE A WEEK Indication: FOR TYPE 2 DIABETES MELLITUS Non-VA ATORVASTATIN CALCIUM 40MG TAB 20MG BY MOUTH ONCE ACTIVE DAILY Indication: FOR HIGH CHOLESTEROL Non-VA KETOCONAZOLE 2% CREAM THIN LAYER TOPICALLY ACTIVE NEEDED Non-VA LISINOPRIL 2.5MG TAB 2.5MG BY MOUTH ONCE DAILY ACTIVE Non-VA MONTELUKAST NA 10MG TAB 10MG BY MOUTH ONCE DAILY ACTIVE Non-VA OMEPRAZOLE 20MG EC CAP 20MG BY MOUTH ONCE DAILY ACTIVE Non-VA SILDENAFIL TAB 20 MG BY MOUTH NEEDED ACTIVE Non-VA SODIUM FLUORIDE 1.1% CREAM,ORAL DIRECTED TO ACTIVE TEETH TWICE DAILY 10 Total Medications MEDICATION RECONCILIATION: BLOOD GLUCOSE MONITORING BG ON 04/10/22: BLOOD [...] the visit. prior to meals: 130-140 mg/dl Date: 08/05/24 pt did not bring the meter to the visit NUTRITION: Diet Patterns: patient eats on avg. [...] weight 185 lbs (11/2023) 195 lbs (03/2024) 180 lbs (07/2024) --- Goal weight 180 lbs HYPOGLYCEMIC Events: 0 [...] and physical activity. f/up in 2 months Date: 08/05/24 Reviewed the most recent labs. A1C is right on target. at 6.6%. At this time recommend to cut down on metformin dose. Pt to SMBG more closely. Pt is loosing weight according to the scale. Discussed nutrition and physical activity. f/up x 6 moths. DIABETES A1c is below goal of <7% - Medication management Diabetes - Empagliflozin 25 mg daily - eGFR >90 ml/min 07/2024 - DECREASE Metformin SA to 500 mg daily - Semaglutide 1 mg weekly (Fridays) - started on [...] of Preventive Care: Most recent visit to pulmonary fellow: never seen ; will place consult Most recent visit to optometry: non-[facility] ; no changes in eye health no NPDR or DE per pt's report. Clinic's Next Scheduled Follow-up:DM PHARMACY X 6 MONTHS No barriers; Patient understands and agrees to current treatment plan. If he has any questions, concerns, or changes in current health status he will call or come in to the [facility]. FUTURE APPOINTMENTS: 12/16/2024 09:30 CWM/SO/PACT 1 BRACE END MAINSPRING FORMER DM type is : T2D Length of Visit: 30 minutes PBM PharmD Pharmacotherapy Rem V12: PHARMACIST INTERVENTIONS: TYPE 2 DIABETES MELLITUS Medication Intervention(s) Adjust dose or frequency of current medication due to hypoglycemia Plan: REDUCE DOSE OF METFORMIN Medication monitoring, no dosage change required, continue to monitor and assess /josue/ JEET JOHNSON CLINICAL REGISTERED ACCOUNT ADMINISTRATOR Signed: 08/05/2024 13:58 Receipt Acknowledged By: 08/09/2024 14:20 /josue/ SAHRA EVANS NP NURSE PRACTITIONER JEET JOHNSONFIELD
--- OUTSIDE RECORDS SUMMARY | 2024-12-02 09:22 | XMS_ITS ---
Author Name [facility] Organization Unknown Encounters Encounter Type Encounter Reason Primary Diagnosis Location Date Ambulatory [facility] 04/21/2023 Ambulatory [facility] 04/02/2023 Ambulatory [facility] 04/02/2023 Ambulatory [facility] 03/11/2023
[2024-12-02 12:30] LABS: Prostate Specific Antigen 0.78 ng/mL (<0.05-4.0)
== END 2024-12-02 09:06 | disposition home or self-care (01) ==
LOC: HO.LAB 09:05
PROVIDERS: PCP Family Medicine; Visit Provider Nurse Practitioner Family
DX: N20.0 Calculus of kidney (principal); Z12.5 Encounter for screening for malignant neoplasm of prostate
CPT/HCPCS: 36415; 74018; 84153

== ENCOUNTER → 2024-12-02 09:12 | Outpatient (BNV) | payer MEDICARE, BC, SELFPAY | PROVIDERS: PCP Family Medicine; Visit Provider Specialist | DX: N20.0 Calculus of kidney (principal) | CPT/HCPCS: 74018 ==

== ENCOUNTER 2024-12-20 12:15 | Outpatient (AMB) | payer MEDICARE, BC, SELFPAY ==
--- NOTE | 2024-12-20 12:15 | MHC.OFFVIS ---
Intake Visit Reasons: 1yr/KUB Intake Note: Patient presents for follow up on : nephrolithiasis, KUB X-ray results, and erectile dysfunction Imagin12/03/24 Urology Medications: sildenafil Blood Thinner: none Office Bookkeeper Required: No Accompanied by: Self / Same As Patient Allergies penicillin V Allergy (Unknown, Verified 12/20/24 13:24) Unknown Medication List - Last Reconciled 12/20/24 by GRACIE Pearson-BC atorvastatin 10 mg PO DAILY empagliflozin (Jardiance) 25 mg PO DAILY ketoconazole 2% 1 appl topical DAILY montelukast 10 mg PO DAILY omeprazole 20 mg PO DAILY semaglutide (Ozempic) 0.5 mg subcut QWEEK sildenafil (pulm.hypertension) 20 mg PO .prn PRN 90 days tadalafil (Cialis) 20 mg PO .PRN PRN 30 days HPI Comments Details: Dain is a very pleasant 69 year old male patient of Dr Lowe. He has a past medical history of diabetes, nephrolithiasis, ED, hypercholesteremia, and GERD. He is being followed up on today via video telehealth for his erectile dysfunction nephrolithiasis. In discussion with the patient today he reports to be doing and feeling well. He denies having had any bothersome urinary issues or concerns since his last office visit. Recent KUB results were reviewed with the patient today 12/05 the bowel gas pattern is normal no new abnormal calcifications noted. PSA 12/05 0.8. He currently denies any bothersome urinary issues or concerns. He denies urinary urgency, urinary frequency, incontinence, nocturia, hematuria, dysuria, foul smelling urine, changes to urinary stream, flank pain, fever, and or chills. When asked he is happy with his current voiding parameters. He continues to utilize p.r.n. Viagra with good effect however is enquiring trial of Cialis. We discussed and stressed importance of managing diabetes for improvement in ED as well as overall health and well-being. We discussed the importance of continuing to drink plenty of water daily in relation to nephrolithiasis as well as overall health and well-being. All questions were answered. He otherwise offers no other issues or concerns at this time. PREVIOUS OFFICE NOTE: Erectile dysfunction: Medications effective. Discussed issues with ejaculation. Appeared to be related to Celebrex. He will see what happens off Celebrex. Retrograde ejaculation discussed the side effects from alpha radha. He presents today for for continued evaluation and management of erectile dysfunction. Current treatment includes Viagra/sildenafil - effective At this time he experiences erections SOY 1-7 Severe ED. Nephrolithiasis/Urolithiasis: They are here for further evaluation of urethrolitiasis. They present for evaluation of back pain none flank pain none abdominal pain none Urolithiasis was diagnosed 2012. The patient previously had kidney stones whose composition w calcium oxalate - monohydrate. Laboratory investigations include no recent labs. 24 Hour urine evaluation improved supersaturations with fluid intake. Prior treatment(s) include observation, with dietary advice to increase fluids, decrease salt and watch protein intake. Prior imaging includes 07/28 no recent imaging punctuate calculi in left lower kidney, 01/26 a KUB x-ray, showing no evidence of stones 01/27 , a KUB x-ray, , showing no evidence of stones. 01/02, a KUB x-ray, showing no evidence of stones. 01/04 a KUB x-ray, showing no evidence of stones. [facility] Medical History Elevated cholesterol Nephrolithiasis GERD (gastroesophageal reflux disease) Diabetes mellitus, type II Ejaculatory disorder Surgical History History of surgery Social History Patient Tobacco Use Status: Never used Tobacco Second Hand Smoke Exposure: No Review of Systems Const All systems reviewed & are unremarkable except as noted in HPI and below Reports as per HPI Eyes Reports no additional complaints ENT Reports no additional complaints Card Reports as per HPI Resp Reports no additional complaints GI Reports as per HPI Reports as per HPI Musc Reports no additional complaints Neuro Reports no additional complaints Psych Reports no additional complaints Endo Reports as per HPI Lg/Lymph Reports no additional complaints Aller/Immun Reports no additional complaints Physical Exam Const General: cooperative, healthy appearing, comfortable, no acute distress, well developed, alert and awake Orientation/consciousness: patient oriented x3 Resp Effort & Inspection: normal respiratory effort and able to speak in complete sentences Neuro General: patient oriented x3 Psych Appearance: grossly normal Mental Status: mental status grossly normal Speech and movement: Clear speech present Affect: normal affect Attitude: cooperative Thought process: Normal thought process present Thought content: Normal thought content present Insight: Fair insight present (Psych) Judgement: Fair judgement present (Psych) Telehealth Telehealth Telehealth Platform: [employer] Location of provider rendering services: practice address Location of patient: address on file Patient Identification confirmed using: Name, : Yes Telehealth method: video Patient verbally consented to treatment: Yes Patient verbally consented to billing insurance company: Yes Patient informed of any privacy concerns related to visit: Yes Minutes spent on Phone/Video with Pt.: 20 Results Reviewed Results Reviewed: Date of Service: 12/02/24 Procedure(s): XR KUB Findings: No pneumoperitoneum or pneumatosis. No new abnormal calcifications. No acute fractures. IMPRESSION: The bowel gas pattern is normal Assessment & Plan Assessment & Plan (1) Erectile dysfunction associated with type 2 diabetes mellitus: Code(s): E11.69 - Type 2 diabetes mellitus with other specified complication; N52.1 - Erectile dysfunction due to diseases classified elsewhere Category: Medical (2) Nephrolithiasis: Code(s): N20.0 - Calculus of kidney Category: Medical Plan Recent KUB results reviewed with the patient today; as noted above. Patient currently denies any bothersome urinary issues or concerns. He reports be happy with current voiding parameters. Recent PSA results reviewed with the patient today; as noted above. We discussed at length the importance of adequate hydration relation to nephrolithiasis as well as overall health and well-being. We discussed lifestyle modifications to assist with ED as well as overall health and well-being. We discussed importance of management in diabetes for improvement in ED as well as overall health and well-being. Stop p.r.n. Viagra Start parents Cialis as discussed and prescribed. Will obtain renal ultrasound in 1 year. Will obtain PSA in 1 year. Follow-up in 1 year with imaging and PSA to be completed prior; or sooner with any issues, concerns, and or questions. Orders: Orders US renal BI 1 Year N20.0 - Calculus of kidney Prostate Specific Antigen 1 Year N40.0 - Benign prostatic hyperplasia without lower urinary tract symptoms Medications: New tadalafil (Cialis) administer approximately 30min before sexual activity; do not use more than 1 dose per 24hrs [id number] [facility] [id number] Member [id number] 20 mg PO .PRN PRN 14 tabs 6RF sexual activity 30 days Patient Instructions: The patient had an opportunity to ask questions regarding the treatment plan. All questions were answered. Physical exam, labs, and imaging were discussed and reviewed in detail. As well as risks, benefits, and discussion of treatment choices. No major barriers to understanding were identified. The patient expressed understanding and agreement with the above treatment plan. The patient was made aware they should contact our office by phone for worsening of their current condition, the appearance of new symptoms, or with any questions or concerns. Compliance is encouraged with any medications and follow up testing that is ordered. It is a privilege to be allowed the opportunity to participate in? your urological care.? Again, if you have any questions or concerns If you have any questions or concerns please do not hesitate to contact me. The office is [phone]. This note is constructed using voice recognition software. While every effort has been made to ensure accuracy deputy general counsel errors may have been included. Yours sincerely, DENISE Pearson Coding Level of Care Code Tele Est Pt Level 4 (60750) Complex EM visit Add On G2211 Diagnoses Erectile dysfunction associated with type 2 diabetes mellitus E11.69; N52.1 Nephrolithiasis N20.0
== END 2024-12-20 13:35 | disposition home or self-care (01) ==
LOC: HO.HUSH 12:15
PROVIDERS: PCP Hospitalist; Visit Provider Nurse Practitioner Family
DX: E11.69 Type 2 diabetes mellitus with other specified complication (principal); N52.1 Erectile dysfunction due to diseases classified elsewhere; N20.0 Calculus of kidney
CPT/HCPCS: 99214; G2211

== ENCOUNTER → 2024-12-20 12:15 | Outpatient (BNVA) | payer MEDICARE, BC, SELFPAY | PROVIDERS: PCP Hospitalist; Visit Provider Nurse Practitioner Family ==

== ENCOUNTER 2025-02-24 09:51 | Outpatient (AMB) | payer MEDICARE, BC, SELFPAY ==
--- NOTE | 2025-02-24 09:56 | MHC.OFFVIS ---
Vital Signs 02/24/25 10:00 Height 5 ft 6 in Weight 140 lb BMI 22.6 Intake Visit Reasons: Left knee pain Intake Note: Dain is a 70 year old male who presents with complaints of left knee pain. He describes his pain as sharp in nature. He did undergo left knee arthroscopic surgery on 05/09/2023. He got fairly good relief from that procedure initially. His pain has gotten worse over the last few months. He has tried Tylenol and anti-inflammatory medicines which gave him minimal relief. Allergies penicillin V Allergy (Unknown, Verified 02/24/25 09:59) Unknown Medication List - Last Reconciled 02/24/25 by Az Reyes MD atorvastatin 10 mg PO DAILY empagliflozin (Jardiance) 25 mg PO DAILY ketoconazole 2% 1 appl topical DAILY montelukast 10 mg PO DAILY omeprazole 20 mg PO DAILY semaglutide (Ozempic) 0.5 mg subcut QWEEK sildenafil (pulm.hypertension) 20 mg PO .prn PRN 90 days tadalafil (Cialis) 20 mg PO .PRN PRN 30 days PFS Medical History Elevated cholesterol Nephrolithiasis GERD (gastroesophageal reflux disease) Diabetes mellitus, type II Ejaculatory disorder Surgical History History of surgery Social History Patient Tobacco Use Status: Never used Tobacco Second Hand Smoke Exposure: No Physical Exam Vital Signs: BMI result Body Mass Index 22.6 Const Other: Well-nourished well-developed very friendly male awake alert and oriented x3 in no acute distress Extrem Other: Bilateral lower extremity examination shows good capillary refill, no skin lesions noted, normal sensation light touch Left knee examination shows a minimal effusion, palpable crepitus with range of motion, pain with range of motion, no instability Office Procedures AMB Joint Injection/Aspiration Joint Injection/Aspiration Primary Site: left knee Prep: site was prepped using aseptic technique Injected: 40 mg of, DepoMedrol and 1% plain lidocaine Procedure: The patient tolerated the procedure well Coding 41036 - Large joint Procedure code (CPT) selection complete Assessment & Plan Assessment & Plan (1) Arthritis of left knee: Code(s): M17.12 - Unilateral primary osteoarthritis, left knee Category: Medical (2) Left knee pain: Code(s): M25.562 - Pain in left knee Category: Medical Plan Mr. Walls presents with left knee pain due to degenerative joint disease. The risks and benefits of a left knee cortisone injection were discussed at with the patient. The patient wished to proceed. He tolerated the injection well. He will continue with his exercise program. He will contact me prior to his follow-up appointment in 3 months should any questions or concerns arise. Feel free to call me at any time should questions regarding his orthopedic management arise. I spent 22 minutes in reviewing the patient's records and imaging studies, seeing the patient and documenting in the medical record. Orders: Orders AMB Joint Injection/Aspiration Today M17.12 - Unilateral primary osteoarthritis, left knee Coding Level of Care Code Est Pt Level 3 (69401) Complex EM visit Add On G2211 Diagnoses Arthritis of left knee M17.12 Left knee pain M25.562 CPT Codes Coding - 33108 Large joint: 36815 - Large joint ([id number])
[2025-02-24 10:00] VITALS: BMI 22.6
--- OUTSIDE RECORDS SUMMARY | 2025-02-24 10:31 | XMS_ITS ---
Author Name [facility] Organization Unknown Encounters Encounter Type Encounter Reason Primary Diagnosis Location Date Ambulatory [facility] 04/21/2023 Ambulatory [facility] 04/02/2023 Ambulatory [facility] [place] 04/02/2023 Ambulatory [facility] 03/11/2023
--- OUTSIDE RECORDS SUMMARY | 2025-02-24 10:31 | XMS_ITS | Clinical Summary ---
Author Organization [facility] Address [address] [place] [address] Care Team Providers Care Tenderizer Tender Name Role Phone Natalio Clancy MD Primary Care Provider [phone] Allergies Active Allergy Reactions Criticality Noted Date [...] 01/27/2000 Fall Risk Assessment 01/27/2020 COVID-19 Vaccine ( - season) 2024 05/18/2021, 10/25/2020, 10/04/2020 Influenza Vaccine (#1) 2025 2, 04/26/2021, 04/15/2018, Additional history exists Pneumococcal [...] age to complete this topic Care Teams Tenderizer Tender Relationship Specialty Start Date End Date Natalio Clancy MD [address] [place] [address] PCP - General Family Medicine 05/22/18
--- OUTSIDE RECORDS SUMMARY | 2025-02-24 10:31 | XMS_ITS | Continuity of Care Document ---
Author Organization [facility] Address [address] [place] [address] Phone [phone] Social History Type Date Description Comments Sex Male Sex Unknown Medical Devices Description No Information Available Encounters Description No Information Available Assessments Description No Information Available Plan of Treatment No Information Available Functional Status Description No Information Available Mental Status Description No Information Available Referrals Description No Information Available
--- OUTSIDE RECORDS SUMMARY | 2025-02-24 10:31 | XMS_ITS | Clinical Summary ---
Author Organization [facility] Address [address] [place] [id number] Phone Care Team Providers Care Game Trapper Name Role Phone Natalio Clancyip Primary Care Provider Social History Tobacco Use Types Packs/Day Years Used Date Smoking Tobacco: Never Assessed Education Answer Date Recorded Are you interested in more education? Not on joel e 11/08/2022 Are you concerned about learning? Not on file 11/08/2022 No 11/08/2022 No 11/08/2022 Digital Access Answer Date Recorded No 12/07/2022 No 12/07/2022 No 12/07/2022 Reliable internet access at home? Not on file 12/07/2022 Device with a working camera? Not on file Sex and Gender Information Value Date Recorded Sex Assigned at Not on file Legal Sex Male 12:07 PM EST Gender Identity Not on file Sexual Orientation Not on file Plan of Treatment Health Maintenance Due Date Last Done Comments LIPID PANEL 1955 DEPRESSION SCREENING 1967 SMOKING Hx and SMOKELESS TOBACCO SCREENING 01/27/1968 HEPATITIS C SCREENING 1973 COLOGUARD 01/27/2000 COLONOSCOPY 01/27/2000 COLORECTAL CANCER SCREENING 01/27/2000 FIT TEST 01/27/2000 FOBT 01/27/2000 SIGMOIDOSCOPY 01/27/2000 VIRTUAL COLONOSCOPY 01/27/2000 Adult Td,Tdap Booster 01/22/2024 01/21/2014 COVID-19 VACCINE (2 - 2023-2 5 season) 2024 10/04/2020 PNEUMOCOCCAL VACCINES (50+ years) (3 of 3 - PCV20 or PCV21) 05/07/2025 05/07/2020, 05/03/2015, 05/23/2012 RSV VACCINE (1 - 1-dose 75+ series) 2030 ZOSTER VACCINES Completed 01/09/2020, 07/18/2019 HEPATITIS A VACCINES Aged Out No long er eligible based on patient's age to complete this topic HIB VACCINES Aged Out No longer eligi ble based on patient's age to complete this topic MENINGOCOCCAL VACCINES (ACWY) Aged Out No longer eligible based on patient's age to complete this topic MENINGOCOCCAL VACCINES (B) Aged Out N o longer eligible based on patient's age to complete this topic Medical Devices Not on file Insurance [employer] Care Teams Game Trapper Relationship Specialty Start Date End Date Aston Natalionoe Hoyt DO [address] [facility] [place] [address] PCP - General Family Medicine 06/12/18 Additional Source Comments The information contained in this document represents components of the legal health record. It is not the complete legal health record.[facility]
== END 2025-02-24 10:22 | disposition home or self-care (01) ==
LOC: HO.HOS 09:51
PROVIDERS: PCP Hospitalist; Visit Provider Orthopaedic Surgery
DX: M17.12 Unilateral primary osteoarthritis, left knee (principal); M25.562 Pain in left knee
CPT/HCPCS: 20610; 99213

== ENCOUNTER → 2025-02-24 09:51 | Outpatient (BNVA) | payer MEDICARE, BC, SELFPAY | PROVIDERS: PCP Hospitalist; Visit Provider Orthopaedic Surgery | DX: M25.562 Pain in left knee (principal); M17.12 Unilateral primary osteoarthritis, left knee | CPT/HCPCS: 20610; 99212; J1010; J2003 ==